=== PATIENT | female | born 1945 | race Caucasian/White ===

== ENCOUNTER 2023-11-28 07:25 | Emergency (ER) | payer MEDICARE, OTHER, SELFPAY ==
[2023-11-28 07:32] VITALS: BP 100/78
[2023-11-28 07:44] VITALS: BMI 25.9
[2023-11-28 08:02] VITALS: BP 126/58
--- NOTE | 2023-11-28 08:07 | ED.GENMED ---
History of Present Illness
General
Chief Complaint: Weakness
Source: patient and spouse
Exam Limitations: none
Time Seen by Provider: 11/28/23 08:07
Nursing documentation reviewed up to this point in time: agreed with
Travel History
Have you had any contact with someone who has COVID-19?: No
Do you have any symptoms of coronavirus? Fever > 100 degrees, chills, cough, shortness of breath, sore throat, loss of taste or smell, muscle aches, or headache?: No
History of Present Illness
History of Present Illness:
78-year-old female presents emergency department complaining of cough, weakness and diarrhea for the past 9 days. She had diarrhea 2 days ago, took Imodium and it stopped. She saw urgent care 2 days ago he suspected it was a virus versus a sinus
infection. She had a COVID swab 2 days ago that was negative. She denies any chest pain or shortness of breath.
Past History
Past History
ED Past Medical History: Cancer (colon, s/p resection 2006, in remission), HTN, Hypercholesterolemia, Hypothyroidism and Other (Sjogren syndrome)
ED Past Surgical History: Bowel resection (for Colon CA), Gynecological and Other (colon resection 2006, tubal ligation)
Social History
Tobacco: Non-smoker
Alcohol: Occasional
Drug: None
Personal:
Living: with family
Review of Systems
Review of Systems
All Other Systems: Not applicable
Constitutional: Denies fever or chills
EENT: Reports no symptoms
Respiratory: Reports cough
Cardiac: Reports no symptoms; Denies chest pain
ABD/GI: Reports diarrhea
: Reports no symptoms
Musculoskeletal: Reports no symptoms
Skin: Reports no symptoms
Neurological: Reports weakness
Hematologic/Lymphatic: Reports no symptoms
Psychiatric: Reports no symptoms
Phy Exam
Physical Exam
Physical Exam:
Physical Exam
General: no apparent distress, not acutely ill
Neck: supple. no meningeal signs. normal posterior pharynx
Heart: s1/s2 regular rate and rhythm, no murmur. equal radial
pulses.
HEENT: Pupils equal round reactive to light, EOMI
Lungs: no acute respiratory distress. clear bilaterally, cough
Abdomen: normal bowel sounds. not tender. no CVAT
Neuro: alert and oriented. no focal neurological deficits cranial nerves II through XII intact
Skin: no rash
Psychiatric: well kept. interactive and cooperative
Extremities: no edema. no calf tenderness. negative homans. good distal pulses
Course
Orders/Labs/Results
Orders:
Orders
11/28/23 07:50
Electrocardiogram (*1) Urgent
Reason for Study: Fatigue / Weakness
EKG- Treatment ONCE
11/28/23 08:00
CMP [Comprehensive Metabolic Panel] Urgent
Complete Blood Count/No Diff Urgent
DDimer [D-Dimer] Urgent
Troponin I Urgent
11/28/23 08:13
COVID-19 Antigen Urgent
Source: Nasal Swab
Influenza A+B Rapid Molecular Urgent
KIERAN Source: Nasal Swab
Specimen Description:
11/28/23 08:23
CR Chest - 2 Views Urgent
Comment:
Reason For Exam: cough
11/28/23 10:27
Urinalysis Reflex To Culture Urgent
Date Specimen was Collected: 11/28/23
Time Specimen was Collected: 10:18
Urine Microscopic Reflex Cult Urgent
Urine Culture Urgent
KIERAN Source: U
Specimen Description:
Date Specimen was Collected: 11/28/23
Time Specimen was Collected: 10:18
Abnormal Lab Results
11/28/23 11/28/23
08:00 10:27
RBC 3.45 L 10^6/uL
(4.20-5.40)
Hgb 11.6 L g/dL
(12.0-16.0)
Hct 33.5 L %
(37.0-47.0)
MCH 33.6 H pg
(27.0-31.0)
MPV 10.6 H fL
(7.4-10.4)
Glucose 105 H mg/dl
(70-99)
Ur Occult Blood Reflex 2+ A
(Negative)
Leukocyte Esterase Rfl 2+ A
(Negative)
Urine RBC 11-15 A /HPF
(0-2)
Urine WBC (Reflex) 16-20 A /HPF
(0-5)
11/28/23 08:00
11/28/23 08:00
Vital Signs
Initial and Last Documented VS:
Initial Vital Signs
Temp Pulse Resp BP Pulse Ox
99.8 F 115 16 100/78 99
11/28/23 07:32 11/28/23 07:32 11/28/23 07:32 11/28/23 07:32 11/28/23 07:32
Last Documented Vital Signs
Temp Pulse Resp BP Pulse Ox
99.8 F 88 21 119/63 92
11/28/23 07:32 11/28/23 11:15 11/28/23 11:15 11/28/23 11:00 11/28/23 11:00
MDM/Problems Addressed
Differential Diagnosis Includes:
UTI, COVID, pneumonia, influenza
MDM/Problems Addressed:
78-year-old female with viral URI, UTI.
Chronic conditions affecting care: HTN
Acute Exacerbation and/or Progression of Chronic Illness: HTN
*Radiology
Radiology exam reviewed: preliminary read by ED provider (Chest x-ray no acute findings)
*Pulse Oximetry
Patient hypoxic: no
*EKG
Interpreted by ED Provider?: Yes
EKG Intrepretation Date: 11/28/23
EKG Intrepretation Time: 08:08
Interpretation: abnormal
Comparison EKG: changes noted
Heart Rate: 95
Rate: normal
Rhythm: sinus
[place]: normal axis
Interval: first degree heart block
QRS Pattern: normal QRS
Ischemia: no ischemia
*Talent Acquisition Project Manager Interpretation
Rate: Talent Acquisition Project Manager- N/A
*Critical Care Note
Total Time (30-74mins, 75-104mins- exclusive of procedures): Not Applicable
Patient Management
Social determinants of health affecting care: Living situation and Strong social support
Escalation/DeEscalation of care consider admission/obs:
Admit not indicated
ED Attending Note
-
Portions of this chart may have been created with voice recognition software.� Occasional wrong word or��sound alike� substitutions may have occurred due to the inherent limitations of voice recognition software.
Discharge Plan
Departure
Patient Disposition: Home (Routine Discharge)
Date of Disposition: 11/28/23
Time of Disposition: 11:40
Patient with high blood pressure during this ER visit?: No
Condition: Good
Discharge Problem:
Urinary tract infection, Viral URI with cough
Instructions: Urinary tract infections in adults, Generalized Weakness (DC), Upper Respiratory Infection - Adult
Prescriptions:
New
cephalexin 500 mg capsule
500 mg PO BID 7 Days Qty: 14 0RF
No Action
losartan [Cozaar] 100 MG tablet
50 mg PO BID
atorvastatin 10 mg tablet
10 mg PO QPM
cevimeline 30 mg capsule
30 mg PO BID
cholecalciferol (vitamin D3) [Vitamin D3] 25 mcg (1,000 unit) Tablet
25 mcg PO QPM
biotin
1 tab PO QPM
acetaminophen 325 mg Tablet
650 mg PO Q4HPRN PRN (Reason: Mild Pain / Temp > 101) Qty: 0 0RF
promethazine-codeine 6.25-10 mg/5 mL Syrup
5 ml PO Q4HPRN PRN (Reason: Cough) Qty: 118 0RF
Mucinex
1,200 mg PO PRN PRN (Reason: congestion)
Sudafed
1 tab PO PRN PRN (Reason: congestion)
Eliquis 5 mg tablet
5 mg PO BID
Rx Instructions:
take 10 mg twice daily x 1 week then 5 mg twice daily thereafter
Referrals:
Albino Esteves MD [Family Provider] -
Interventions
Interventions:
*Risk Screen - Suicide Last Done: 11/28/23 07:45
*General Assessment Last Done: 11/28/23 07:44
*Neglect/Abuse Screening Last Done: 11/28/23 07:45
ED- Fall Risk Assessment Last Done: 11/28/23 07:45
*ED COVID-19 Vaccine History Last Done: 11/28/23 07:32
*Nursing Disposition Last Done: 11/28/23 12:11
ED- Cardiac Assessment Last Done: 11/28/23 07:48
ED- Neurological Assessment Last Done: 11/28/23 07:45
ED- Pulmonary Assessment Last Done: 11/28/23 07:48
Discharge Date and Time
Discharge Date/Time: 11/28/23 12:11
--- NOTE | 2023-11-28 08:12 | EDRN ---
D dimer drawn as pt was due for this as an out pt today for DR Hunter
[2023-11-28 08:13] LABS: Hematocrit 33.5 % (37.0-47.0); Hemoglobin 11.6 g/dL (12.0-16.0); Mean Corp Hgb Conc. 34.6 g/dL (33.0-37.0); Mean Corpuscular Hgb 33.6 pg (27.0-31.0); Mean Corpuscular Volume 97.1 fL (81.0-99.0); Mean Platelet Volume 10.6 fL (7.4-10.4); Platelet Count 147 10^3/uL (130-400); Red Blood Cell Count 3.45 10^6/uL (4.20-5.40); Red Cell Dist. Width 12.2 % (11.5-14.5); White Blood Cell Count 6.9 10^3/uL (4.8-10.8)
[2023-11-28 08:30] LABS: Troponin I < 0.012 ng/ml
[2023-11-28 08:31] LABS: ALT (SGPT) 17 U/L (0-35); AST (SGOT) 25 U/L (14-36); Albumin 3.8 g/dl (3.5-5.0); Alkaline Phosphatase 46 U/L (38-126); Blood Urea Nitrogen 16 mg/dl (7-17); Calcium 9.1 mg/dl (8.4-10.2); Carbon Dioxide 24 mmol/L (22-30); Chloride 105 mmol/L (98-107); Estimated Creatinine Clearance 42 ml/min; Glucose 105 mg/dl (70-99); Potassium 3.8 mmol/L (3.5-5.1); Sodium 137 mmol/L (135-145); Total Bilirubin 0.9 mg/dl (0.2-1.3); Total Protein 6.3 g/dl (6.3-8.2); eGFR > 60.00
[2023-11-28 08:47] LABS: COVID-19 Antigen Negative (Negative)
[2023-11-28 08:57] LABS: D-Dimer 0.37 ug/mlFEU (0.00-0.50)
[2023-11-28 09:00] VITALS: BP 129/56
[2023-11-28 10:00] VITALS: BP 127/53
[2023-11-28 10:37] LABS: Urine Albumin Trace (Neg - Trace); Urine Bilirubin Negative (Negative); Urine Character Clear (Clear); Urine Color Yellow; Urine Glucose Negative (Negative); Urine Ketone Negative (Negative); Urine Leukocyte 2+ (Negative); Urine Nitrite Negative (Negative); Urine Occult Blood 2+ (Negative); Urine Urobilinogen Negative (Neg - 1+)
[2023-11-28 10:51] LABS: Urine White Cell 16-20 /HPF (0-5)
[2023-11-28 11:00] VITALS: BP 119/63
== END 2023-11-28 12:11 | disposition home or self-care (01) ==
LOC: EMR 07:25
PROVIDERS: Emergency Medicine; EMERGENCY PHYSICIAN Emergency Medicine; FAMILY PHYSICIAN Internal Medicine
DX: N39.0 Urinary tract infection, site not specified (principal); J06.9 Acute upper respiratory infection, unspecified; I10 Essential (primary) hypertension; E78.00 Pure hypercholesterolemia, unspecified; E03.9 Hypothyroidism, unspecified; M35.00 Sjogren syndrome, unspecified; Z85.038 Personal history of other malignant neoplasm of large intestine
CPT/HCPCS: 99283; 71046; 80053; 81003; 81015; 84484; 85027; 85379; 87086; 87502; 87811; 93005

== ENCOUNTER → 2023-12-28 09:24 | Outpatient (REF) | payer MEDICARE, OTHER, SELFPAY ==
[2023-12-30 01:55] LABS: Beta-2-Glycoprotein I Ab. IgA <10 SAU (<=20)
[2023-12-30 02:15] LABS: Cardiolipin IgA Antibody <10 APL (<=11); Cardiolipin IgM Antibody <10 MPL (<=12); Cardiolipin Igg Antibody <10 GPL (<=14)
[2023-12-30 19:28] LABS: Hepatitis B Surface Antigen Negative (Negative)
[2023-12-30 19:42] LABS: Hepatitis B Core Ab, Total Negative (Negative); Hepatitis C Antibody Negative (Negative)
== END ==
LOC: REG 09:24
PROVIDERS: ATTENDING PHYSICIAN Internal Medicine Rheumatology; FAMILY PHYSICIAN Internal Medicine
DX: D89.2 Hypergammaglobulinemia, unspecified (principal); E03.9 Hypothyroidism, unspecified; E55.9 Vitamin D deficiency, unspecified; I26.99 Other pulmonary embolism without acute cor pulmonale; M16.0 Bilateral primary osteoarthritis of hip; M35.00 Sjogren syndrome, unspecified; M48.061 Spinal stenosis, lumbar region without neurogenic claudication; M51.37 Other intervertebral disc degeneration, lumbosacral region; Z11.59 Encounter for screening for other viral diseases; Z13.820 Encounter for screening for osteoporosis; Z79.899 Other long term (current) drug therapy
CPT/HCPCS: 36415; 85520; 85613; 86146; 86147; 86704; 86803; 87340

== ENCOUNTER 2024-01-27 10:24 | Emergency (ER) | payer MEDICARE, OTHER, SELFPAY ==
[2024-01-27 10:28] VITALS: BP 122/65
--- NOTE | 2024-01-27 10:56 | ED.GENMED ---
History of Present Illness
<Venice Stephens REAL ESTATE SALES MANAGER - Last Filed: 01/27/24 16:59>
General
Chief Complaint: Cough
Source: patient
Exam Limitations: none
Time Seen by Provider: 01/27/24 10:55
Nursing documentation reviewed up to this point in time: agreed with
Travel History
Have you had any contact with someone who has COVID-19?: No
Do you have any symptoms of coronavirus? Fever > 100 degrees, chills, cough, shortness of breath, sore throat, loss of taste or smell, muscle aches, or headache?: No
History of Present Illness
History of Present Illness:
78-year-old female with history of HTN, HLD, GI bleed, Sjogren's, colon resection due to colon cancer, lower extremity neuropathy postchemotherapy, hypothyroid, remote history of PE, presents stating for past week her cough 'returned,' worsening
nasal stuffiness, productive cough whitish yellow sputum, paroxysms of cough, kept her up 'a couple of nights' Robitussin giving her some relief. This a.m. noted her sitting forward, elbows on knees, breathing fast after a coughing spell,
got worried and brought her here. They both admit 'she seems much better now.' She states she was coughing up 'some heavy stuff.' States temp 100.4 2 hours ago and took Tylenol.
Denies CP, abdominal pain, n/v/d.
Pt admitted here 11/29-12/02 with viral bronchitis, hypoxia (negative PE study during that stay, echocardiogram showed no change except for mild MR became moderate MR).
Recommended she keep her appointment with cardiology Dr. oDe
Make an appointment for pulmonary function testing
Get her thyroid function test in 6 weeks as her TSH was mildly elevated
Finished regimen of doxycycline and steroids and symptoms much improved.
Past History
<Venice Stephens REAL ESTATE SALES MANAGER - Last Filed: 01/27/24 16:59>
Past History
ED Past Medical History: Cancer (colon, s/p resection 2006, in remission), HTN, Hypercholesterolemia, Hypothyroidism and Other (Sjogren syndrome)
ED Past Surgical History: Bowel resection (for Colon CA), Gynecological and Other (colon resection 2006, tubal ligation)
Social History
Tobacco: Non-smoker
Alcohol: Occasional
Drug: None
Personal:
Living: with family
Review of Systems
<Venice Stephens, REAL ESTATE SALES MANAGER - Last Filed: 01/27/24 16:59>
Review of Systems
Allergies reviewed?: Yes
All Other Systems: ROS reviewed and negative except as documented in HPI and ROS
Constitutional: Denies fever or chills
Respiratory: Reports cough
Cardiac: Denies chest pain
ABD/GI: Denies abdominal pain, nausea, vomiting or diarrhea
Phy Exam
<Venice Stephens, REAL ESTATE SALES MANAGER - Last Filed: 01/27/24 16:59>
Physical Exam
Physical Exam:
GENERAL: No acute distress. A&Ox3.
CONSTITUTIONAL: Afebrile.
EYES: clear, conjunctivae normal
ENMT: moist mucus membranes, Pharynx nl, no frontal or maxillary sinus tenderness to percussion
RESPIRATORY: Regular respirations, nonlabored, lungs clear.
CARDIOVASCULAR: Regular rate and rhythm, no murmurs, no rubs.
GI: Soft, nontender, normal BS
MUSCULOSKELETAL: Moves with ease. Well perfused. No edema
SKIN: Warm, dry, pink
PSYCH: Normal mood and affect. Well kept, interactive and appropriate
NEUROLOGIC: Awake, alert and oriented. No focal neurological deficits
Course
<Venice Stephens, REAL ESTATE SALES MANAGER - Last Filed: 01/27/24 16:59>
Orders/Labs/Results
Orders:
Orders
01/27/24 11:41
COVID-19 Antigen Urgent
Source: Nasal Swab
Complete Blood Count/With Diff Urgent
Comprehensive Metabolic Panel Urgent
TSH Reflex To Free T4 Urgent
Influenza A+B Rapid Molecular Urgent
KIERAN Source: Nasal Swab
Specimen Description:
01/27/24 11:42
D-Dimer Urgent
01/27/24 13:05
CT Chest Pe Study Urgent
Comment:
Reason For Exam: SOB 2 weeks off Eliquis, elevated dimer
Abnormal Lab Results
01/27/24 01/27/24
11:41 11:42
RBC 3.44 L 10^6/uL
(4.20-5.40)
Hgb 11.3 L g/dL
(12.0-16.0)
Hct 34.0 L %
(37.0-47.0)
MCH 32.8 H pg
(27.0-31.0)
Absolute Lymphs (auto) 0.8 L 10^3/uL
(1.2-3.4)
Lymphocytes % 16.5 L %
(20.5-51.1)
Monocytes % 10.1 H %
(1.7-9.3)
D-Dimer 1.01 H ug/mlFEU
(0.00-0.50)
Sodium 134 L mmol/L
(135-145)
Glucose 106 H mg/dl
(70-99)
Total Protein 6.0 L g/dl
(6.3-8.2)
01/27/24 11:41
01/27/24 11:41
Vital Signs
Initial and Last Documented VS:
Initial Vital Signs
Temp Pulse BP Pulse Ox
99.6 F 105 122/65 99
01/27/24 10:28 01/27/24 10:28 01/27/24 10:28 01/27/24 10:28
Last Documented Vital Signs
Temp Pulse Resp BP Pulse Ox
99.6 F 81 18 133/67 95
01/27/24 10:28 01/27/24 13:16 01/27/24 13:16 01/27/24 13:16 01/27/24 13:16
Computer Discovery Teacher consulted with Physician
Computer Discovery Teacher consulted with physician?: Yes
Name of Physician Consulted: Merlene
<Aline Blunt MD - Last Filed: 01/27/24 14:19>
Orders/Labs/Results
Orders:
Orders
01/27/24 11:41
COVID-19 Antigen Urgent
Source: Nasal Swab
Complete Blood Count/With Diff Urgent
Comprehensive Metabolic Panel Urgent
TSH Reflex To Free T4 Urgent
Influenza A+B Rapid Molecular Urgent
KIERAN Source: Nasal Swab
Specimen Description:
01/27/24 11:42
D-Dimer Urgent
01/27/24 13:05
CT Chest Pe Study Urgent
Comment:
Reason For Exam: SOB 2 weeks off Eliquis, elevated dimer
Abnormal Lab Results
01/27/24 01/27/24
11:41 11:42
RBC 3.44 L 10^6/uL
(4.20-5.40)
Hgb 11.3 L g/dL
(12.0-16.0)
Hct 34.0 L %
(37.0-47.0)
MCH 32.8 H pg
(27.0-31.0)
Absolute Lymphs (auto) 0.8 L 10^3/uL
(1.2-3.4)
Lymphocytes % 16.5 L %
(20.5-51.1)
Monocytes % 10.1 H %
(1.7-9.3)
D-Dimer 1.01 H ug/mlFEU
(0.00-0.50)
Sodium 134 L mmol/L
(135-145)
Glucose 106 H mg/dl
(70-99)
Total Protein 6.0 L g/dl
(6.3-8.2)
01/27/24 11:41
01/27/24 11:41
Vital Signs
Initial and Last Documented VS:
Initial Vital Signs
Temp Pulse BP Pulse Ox
99.6 F 105 122/65 99
01/27/24 10:28 01/27/24 10:28 01/27/24 10:28 01/27/24 10:28
Last Documented Vital Signs
Temp Pulse Resp BP Pulse Ox
99.6 F 81 18 133/67 95
01/27/24 10:28 01/27/24 13:16 01/27/24 13:16 01/27/24 13:16 01/27/24 13:16
<Venice Stephens REAL ESTATE SALES MANAGER - Last Filed: 01/27/24 16:59>
MDM/Problems Addressed
Differential Diagnosis Includes:
Mucus plug, PE
MDM/Problems Addressed:
78-year-old female with history of HTN, HLD, GI bleed, Sjogren's, colon resection due to colon cancer, lower extremity neuropathy postchemotherapy, hypothyroid, remote history of PE, presents stating for past week her cough 'returned,' worsening
nasal stuffiness, productive cough whitish yellow sputum, paroxysms of cough, kept her up 'a couple of nights' Robitussin giving her some relief. This a.m. noted her sitting forward, elbows on knees, breathing fast after a coughing spell,
got worried and brought her here. They both admit 'she seems much better now.' She states she was coughing up 'some heavy stuff.' States temp 100.4 2 hours ago and took Tylenol.
Denies CP, abdominal pain, n/v/d.
Pt admitted here 11/29-12/02 with viral bronchitis, hypoxia (negative PE study during that stay, echocardiogram showed no change except for mild MR became moderate MR).
Recommended she keep her appointment with cardiology Dr. Doe
Make an appointment for pulmonary function testing
Get her thyroid function test in 6 weeks as her TSH was mildly elevated
Finished regimen of doxycycline and steroids and symptoms much improved.
Afebrile, NAD, pleasant feeling 'much better.'
Pt saw Pulmonology Dr. Jiménez 2 weeks ago for f/u after PE w Covid 08/2023 and he stopped her Eliquis at that time
It seems pt may have coughed up a mucus plug during the worrisome event of coughing then fatigue and SOB witnessed
Pt had 2 CXR w NAD in past month, Chest CT for PE neg on 11/29/23, lungs CTA, no hypoxemia, hold off on CXR for now
With h/o PE and taken off Eliquis recently, will check Dimer
Case discussed with Dr. Blunt who agrees with plan
1:54 PM
Influenza and Covid negative
Dimer 1.01
CBC, CMP unremarkable
CT PE study radiology report read: IMPRESSION:
No evidence of central pulmonary embolism.
Parenchymal findings again seen correlating with the patient's known history of Sjogren's syndrome.
Pt continues to feel better.
D dimer elevation most likely from Sjogren's
Prescription for guaifenesin and codeine sent to patient's pharmacy since this has helped her cough in the past
Upon discharge, patient ambulated out with normal gait.
<Venice Stephens, REAL ESTATE SALES MANAGER - Last Filed: 01/27/24 16:59>
*Critical Care Note
Total Time (30-74mins, 75-104mins- exclusive of procedures): Not Applicable
ED Attending Note
<Venice Stephens REAL ESTATE SALES MANAGER - Last Filed: 01/27/24 16:59>
-
Portions of this chart may have been created with voice recognition software.� Occasional wrong word or��sound alike� substitutions may have occurred due to the inherent limitations of voice recognition software.
<Aline Blunt MD - Last Filed: 01/27/24 14:19>
ED Attending Note
Patient seen and examined by attending physician: Yes
I performed the substantive portion of visit, reviewed & personally made and approve the management plan that is documented in note by myself or RENZO.: Yes
ED Attending Note:
78-year-old female with extensive prior medical history, recently discharged in the hospital in late November presents with cough and fatigue for at least the last few days if not week. She denies fever, vomiting, chest pain, leg swelling,
hemoptysis, sore throat, rhinorrhea. Here in the emergency department patient feels better since arrival, no dyspnea, no chest pain. Patient is awake alert extremely well-appearing, nontoxic, occasional nonproductive cough noted, speaks in full
sentences easily. Heart regular rate and rhythm. Lungs CTA with the exception of occasional slight wheeze noted at left base, no retractions. Workup reviewed here, no acute emergent etiology for symptoms noted, no specific infectious etiology
noted, no PE. Discussed with patient importance of follow-up and reasons return to the ER. I also recommend that she use inhaler that she has at home for symptom relief. Requesting cough medication which I have prescribed for her.
Discharge Plan
Departure
Patient Disposition: Home (Routine Discharge)
Date of Disposition: 01/27/24
Time of Disposition: 14:18
Patient with high blood pressure during this ER visit?: No
Condition: Good
Discharge Problem:
URI (upper respiratory infection), Cough
Instructions: Viral Upper Respiratory Infection, Adult (DC), Cough, Adult (DC)
Prescriptions:
New
codeine-guaifenesin 10-100 mg/5 mL liquid
5 ml PO Q6H Qty: 120 0RF
No Action
losartan [Cozaar] 100 MG tablet
50 mg PO BID
atorvastatin 10 mg tablet
10 mg PO QPM
cevimeline 30 mg capsule
30 mg PO BID
cholecalciferol (vitamin D3) [Vitamin D3] 25 mcg (1,000 unit) Tablet
25 mcg PO QPM
biotin
1 tab PO QPM
Eliquis 5 mg tablet
5 mg PO BID
guaifenesin 100 mg/5 mL Liquid
200 mg PO Q4H PRN (Reason: cough)
levothyroxine 75 mcg Tablet
75 mcg PO DAILY AT 0700
doxycycline hyclate 100 mg Capsule
100 mg PO Q12 Qty: 5 0RF
metoprolol succinate 25 mg Tablet Extended Release 24 Hr
25 mg PO DAILY Qty: 30 0RF
prednisone 10 mg Tablet
See Rx Instructions .ROUTE .COMPLEX Qty: 22 0RF
Rx Instructions:
Take By Mouth:
40 mg daily x2 days, 30 mg daily x2 days,
20 mg daily x2 days, 10 mg daily x2 days.
famotidine [Pepcid] 40 mg tablet
40 mg PO DAILY Qty: 10 0RF
levalbuterol tartrate [Xopenex HFA] 45 mcg/actuation HFA aerosol inhaler
2 inh inhalation Q6H PRN (Reason: shortness of breath or wheezing) Qty: 15 0RF
Referrals:
Albino Esteves MD [Family Provider] - As needed
Activity Restrictions/Additional Instructions:
As we discussed, a prescription was sent to your pharmacy for guaifenesin with codeine for your cough.
See your doctor in 5 to 7 days and improved by then.
Your TSH is normal.
Interventions
Interventions:
*Risk Screen - Suicide Last Done: 01/27/24 11:50
*General Assessment Last Done: 01/27/24 11:50
*Neglect/Abuse Screening Last Done: 01/27/24 11:50
ED- Fall Risk Assessment Last Done: 01/27/24 15:06
*ED COVID-19 Vaccine History Last Done: 01/27/24 10:32
*Nursing Disposition Last Done: 01/27/24 15:06
ED- Pulmonary Assessment Last Done: 01/27/24 11:50
Discharge Date and Time
Discharge Date/Time: 01/27/24 15:07
[2024-01-27 12:00] LABS: % Basophils 0.2 % (0-2); % Eosinophils 0.6 % (0-6); % Immature Granulocytes 0.2 % (0-0.5); % Lymphocytes 16.5 % (20.5-51.1); % Monocytes 10.1 % (1.7-9.3); % Neutrophils 72.4 % (42.2-75.2); Absolute Lymphocytes 0.8 10^3/uL (1.2-3.4); Absolute Monocytes 0.5 10^3/uL (0.1-0.6); Absolute Neutrophils 3.5 10^3/uL (1.4-6.5); Hemoglobin 11.3 g/dL (12.0-16.0); Mean Corp Hgb Conc. 33.2 g/dL (33.0-37.0); Mean Corpuscular Hgb 32.8 pg (27.0-31.0); Mean Corpuscular Volume 98.8 fL (81.0-99.0); Mean Platelet Volume 10.4 fL (7.4-10.4); Nucleated Red Blood Cells % 0 %; Platelet Count 145 10^3/uL (130-400); Red Blood Cell Count 3.44 10^6/uL (4.20-5.40); Red Cell Dist. Width 13.4 % (11.5-14.5); White Blood Cell Count 4.9 10^3/uL (4.8-10.8)
[2024-01-27 12:02] LABS: COVID-19 Antigen Negative (Negative)
[2024-01-27 12:14] LABS: D-Dimer 1.01 ug/mlFEU (0.00-0.50)
[2024-01-27 12:16] LABS: ALT (SGPT) 15 U/L (0-35); AST (SGOT) 29 U/L (14-36); Albumin 3.7 g/dl (3.5-5.0); Alkaline Phosphatase 47 U/L (38-126); Blood Urea Nitrogen 17 mg/dl (7-17); Carbon Dioxide 28 mmol/L (22-30); Chloride 104 mmol/L (98-107); Glucose 106 mg/dl (70-99); Potassium 4.1 mmol/L (3.5-5.1); Sodium 134 mmol/L (135-145); eGFR > 60.00
[2024-01-27 12:57] LABS: TSH Reflex To Free T4 3.66 uIU/ml (0.47-4.68)
[2024-01-27 13:16] VITALS: BP 133/67
== END 2024-01-27 15:07 | disposition home or self-care (01) ==
LOC: EMR 10:24
PROVIDERS: Registered Nurse; EMERGENCY PHYSICIAN Emergency Medicine; FAMILY PHYSICIAN Internal Medicine
DX: J06.9 Acute upper respiratory infection, unspecified (principal); R05.9 Cough, unspecified; Z11.52 Encounter for screening for COVID-19; I10 Essential (primary) hypertension; E78.00 Pure hypercholesterolemia, unspecified; M35.00 Sjogren syndrome, unspecified; E03.9 Hypothyroidism, unspecified
CPT/HCPCS: 99285; 71275; 80053; 84443; 85025; 85379; 87502; 87811; Q9967

== ENCOUNTER 2024-01-31 19:15 | Inpatient (IN) | payer MEDICARE, OTHER, SELFPAY ==
[2024-01-31 13:35] VITALS: BP 112/63
[2024-01-31 14:05] LABS: % Basophils 0.2 % (0-2); % Eosinophils 0.1 % (0-6); % Immature Granulocytes 0.4 % (0-0.5); % Lymphocytes 15.2 % (20.5-51.1); % Monocytes 10.2 % (1.7-9.3); % Neutrophils 73.9 % (42.2-75.2); Absolute Lymphocytes 1.5 10^3/uL (1.2-3.4); Absolute Neutrophils 7.3 10^3/uL (1.4-6.5); Hematocrit 32.6 % (37.0-47.0); Hemoglobin 11.2 g/dL (12.0-16.0); Mean Corp Hgb Conc. 34.4 g/dL (33.0-37.0); Mean Corpuscular Hgb 32.7 pg (27.0-31.0); Mean Corpuscular Volume 95.3 fL (81.0-99.0); Mean Platelet Volume 10.6 fL (7.4-10.4); Nucleated Red Blood Cells % 0 %; Platelet Count 139 10^3/uL (130-400); Red Blood Cell Count 3.42 10^6/uL (4.20-5.40); Red Cell Dist. Width 13.5 % (11.5-14.5); White Blood Cell Count 9.9 10^3/uL (4.8-10.8)
[2024-01-31 14:32] LABS: ALT (SGPT) 16 U/L (0-35); AST (SGOT) 28 U/L (14-36); Albumin 4.1 g/dl (3.5-5.0); Alkaline Phosphatase 45 U/L (38-126); Blood Urea Nitrogen 18 mg/dl (7-17); Calcium 9.5 mg/dl (8.4-10.2); Carbon Dioxide 25 mmol/L (22-30); Chloride 97 mmol/L (98-107); Glucose 124 mg/dl (70-99); Potassium 4.2 mmol/L (3.5-5.1); Sodium 134 mmol/L (135-145); Total Bilirubin 2.1 mg/dl (0.2-1.3); Total Protein 6.6 g/dl (6.3-8.2); eGFR 57.66
[2024-01-31 15:06] VITALS: BMI 25.4
[2024-01-31 15:07] VITALS: BP 130/86
[2024-01-31 15:07] LABS: Lactic Acid 2.4 mmol/L (0.7-2.0)
--- NOTE | 2024-01-31 16:01 | ED.GENMED ---
History of Present Illness
General
Chief Complaint: Cold/Flu/URI Symptoms
Source: patient and family
Exam Limitations: none
Time Seen by Provider: 01/31/24 14:29
Travel History
Have you had any contact with someone who has COVID-19?: No
Do you have any symptoms of coronavirus? Fever > 100 degrees, chills, cough, shortness of breath, sore throat, loss of taste or smell, muscle aches, or headache?: Yes
Symptoms:: see above
History of Present Illness
History of Present Illness:
78-year-old female with ongoing cough congestion shortness of breath. This been an ongoing issue but more progressive the last 3 to 4 days. Seen in the ER 4 days [address] with negative CT.
Past History
Past History
ED Past Medical History: Cancer (colon, s/p resection 2006, in remission), HTN, Hypercholesterolemia, Hypothyroidism and Other (Sjogren syndrome)
ED Past Surgical History: Bowel resection (for Colon CA), Gynecological and Other (colon resection 2006, tubal ligation)
Social History
Tobacco: Non-smoker
Alcohol: Occasional
Drug: None
Personal:
Living: with family
Review of Systems
Review of Systems
All Other Systems: Not applicable
Constitutional: Reports fever
Respiratory: Reports cough; Denies hemoptysis
Cardiac: Denies chest pain
Phy Exam
Physical Exam
Physical Exam:
GENERAL: Alert and oriented in no apparent distress
EYE: Orbits normal.
NECK: Supple
CARDIAC: Regular rate and rhythm without any obvious murmurs.
LUNGS: No respiratory distress but diffuse expiratory wheezing and rhonchi. Recurrent cough
ABDOMEN: Soft, without focal tenderness or distention
NEUROLOGICAL: Alert and oriented , grossly non-focal
SKIN: Warm and dry, no rash or lesion, no discoloration, skin intact.
MUSCULOSKELETAL: No edema,no deformity.Good color
PSYCH: Normal and appropriate interaction.
Course
Orders/Labs/Results
Orders:
Orders
01/31/24 13:43
Electrocardiogram (*1) Urgent
Reason for Study: Other
Other Reason for Exam: Possible Sepsis
Cardiac Monitoring- Treatment ONCE
EKG- Treatment ONCE
IV Insert/Care/Rem.- Treatment PRN
O2 Therapy [RESP] Urgent
Titrate/Wean O2 to maintain O2 sat greater than (%): 93
Special Instructions: TO MAINTAIN CONTINUOUS O2 SATS > OR = 93%
Pulse Ox/cont/shift [RESP] Urgent
Quantity: 1
Special Instructions: CONTINUOUS
01/31/24 13:55
Complete Blood Count/With Diff Urgent
Comprehensive Metabolic Panel Urgent
Lactic Acid Q4H
Comment: ON ICE, CANCEL 2ND ORDER IF FIRST LACTIC ACID LEVEL <2
Blood Culture Q30M
KIERAN Source: Blood/Venous
Specimen Description:
Comment: FROM 2 SEPARATE SITES
01/31/24 15:45
Dexamethasone Sod Phosphate [Decadron] 6 mg IV NOW STA
Ipratropium/Albuterol Sulfate [Duoneb] 3 ml INH R NOW STA
01/31/24 15:46
CXR2 [CR Chest - 2 Views ] Urgent
Comment:
Reason For Exam: Persistent cough/short of breath
01/31/24 16:15
COVID-19 Antigen Urgent
Source: Nasal Swab
01/31/24 16:16
Blood Culture Q30M
KIERAN Source: Blood/Venous
Specimen Description:
Comment: FROM 2 SEPARATE SITES
Influenza A+B Rapid Molecular Urgent
KIERAN Source: Nasal Swab
Specimen Description:
01/31/24 16:18
Dexamethasone Sod Phosphate [Decadron] 4 mg .ROUTE .STK-MED ONE
01/31/24 17:45
Lactic Acid Q4H
Comment: ON ICE, CANCEL 2ND ORDER IF FIRST LACTIC ACID LEVEL <2
01/31/24 18:22
Admit/Transfer Patient As Directed
Co-Sign Provider:
Level of Care: Inpatient admission
Assign to:: Medical/Surgical
Physician / Group: aba
Diagnosis: bronchitis
Reason for Hospitalization: bronchitis
Expected length of stay greater than two midnights?: Yes
ELOS- Estimated Length of Stay in days: 3
I certify the patient meets the requirements for IP care: Yes
01/31/24 18:24
Code Status As Directed
Resuscitation Status: Full Code
01/31/24 18:36
Sputum Culture [Respiratory Culture/Gram Stain] Stat
KIERAN Source: Sputum
Specimen Description:
01/31/24 18:44
Procalcitonin Routine
PCT Algorithmm Indication: Respiratory
Abnormal Lab Results
01/31/24
13:55
RBC 3.42 L 10^6/uL
(4.20-5.40)
Hgb 11.2 L g/dL
(12.0-16.0)
Hct 32.6 L %
(37.0-47.0)
MCH 32.7 H pg
(27.0-31.0)
MPV 10.6 H fL
(7.4-10.4)
Absolute Neuts (auto) 7.3 H 10^3/uL
(1.4-6.5)
Absolute Monos (auto) 1.0 H 10^3/uL
(0.1-0.6)
Lymphocytes % 15.2 L %
(20.5-51.1)
Monocytes % 10.2 H %
(1.7-9.3)
Sodium 134 L mmol/L
(135-145)
Chloride 97 L mmol/L
(98-107)
BUN 18 H mg/dl
(7-17)
Glucose 124 H mg/dl
(70-99)
Lactic Acid 2.4 H mmol/L
(0.7-2.0)
Total Bilirubin 2.1 H mg/dl
(0.2-1.3)
01/31/24 13:55
01/31/24 13:55
Vital Signs
Initial and Last Documented VS:
Initial Vital Signs
Temp Pulse Resp BP Pulse Ox
99.7 F 108 22 112/63 95
01/31/24 13:35 01/31/24 13:35 01/31/24 13:35 01/31/24 13:35 01/31/24 13:35
Last Documented Vital Signs
Temp Pulse Resp BP Pulse Ox
99.7 F 94 20 130/86 96
01/31/24 13:35 01/31/24 16:30 01/31/24 16:30 01/31/24 15:07 01/31/24 15:26
*Radiology
Radiology exam reviewed: preliminary read by ED provider (Negative) and radiology read reviewed (Negative)
*Pulse Oximetry
Patient hypoxic: no
*Critical Care Note
Total Time (30-74mins, 75-104mins- exclusive of procedures): Not Applicable
Data Reviewed
Review of Other/Old Records Reveals: Labs, Records, Testing and Discharge Summary
Update Note
Update Note:
Patient is not hypoxic but has persistent wheezing and rhonchi. Will admit for further care
ED Attending Note
-
Portions of this chart may have been created with voice recognition software.� Occasional wrong word or��sound alike� substitutions may have occurred due to the inherent limitations of voice recognition software.
Discharge Plan
Departure
Patient Disposition: Admit
Date of Disposition: 01/31/24
Time of Disposition: 17:43
Presentation/result/management discussed w/ accepting MD/DO: Hospitalist
Discharge Problem:
Respiratory distress, Persistent asthmatic bronchitis
Prescriptions:
No Action
losartan [Cozaar] 100 MG tablet
50 mg PO BID
atorvastatin 10 mg tablet
10 mg PO QPM
cevimeline 30 mg capsule
30 mg PO BID
cholecalciferol (vitamin D3) [Vitamin D3] 25 mcg (1,000 unit) Tablet
25 mcg PO QPM
biotin
1 tab PO QPM
levothyroxine 75 mcg Tablet
75 mcg PO DAILY AT 0700
acetaminophen 500 mg Tablet
1,000 mg PO BID
albuterol sulfate 90 mcg/actuation HFA aerosol inhaler
2 puff INHALATION R Q4 PRN (Reason: sob/wheezing)
Referrals:
Albino Esteves MD [Family Provider] -
Interventions
Interventions:
*Risk Screen - Suicide Last Done: 01/31/24 13:35
*General Assessment Last Done: 01/31/24 13:35
*Neglect/Abuse Screening Last Done: 01/31/24 13:35
ED- Fall Risk Assessment Last Done: 01/31/24 15:26
*ED COVID-19 Vaccine History Last Done: 01/31/24 15:21
ED- Pulmonary Assessment Last Done: 01/31/24 15:26
Discharge Date and Time
Print Language: PRYDEINIG
[2024-01-31] MEDS: DECADRON 6 MG IV (16:17)
[2024-01-31] MEDS: DUONEB 3 ML INH (16:26)
[2024-01-31 17:01] LABS: COVID-19 Antigen Negative (Negative)
--- NOTE | 2024-01-31 18:04 | HPS.HSE ---
Family Physician
-
Family Physician: Yosvany Esteves
Chief Complaint
-
sob
cough
History of Present Illness
78-year-old with past medical history for colon cancer, hypertension, hyperlipidemia, hypothyroidism, bronchitis, COVID. Presented to us with chest congestion, runny nose prior to cough with green sputum. Short of breath which is worse with mild
activity since the weekend. Patient was evaluated in the ER on Saturday. She was discharged from ER on codeine guaifenesin. Patient stated she had a fever 100.4. Took Tylenol. Patient denies any headache, dizziness, syncopal episode. Patient
denies any chest pain. Patient denies any abdominal pain, nausea, vomiting, diarrhea. Patient denies dysuria materia.
COVID, flu negative. Chest x-ray negative for acute disease. Patient received nebulizer treatment and Decadron in ER. Admitting for further management
Medical History
Past Medical History
Past Medical History: Reports Other
Additional Past Medical History:
GERD
Hypertension
Right carotid artery occlusion and stenosis
Varicose veins
Hypothyroidism
History of colon cancer
Hyperlipidemia
PE
Past Surgical History: Reports Other
Additional Past Surgical History:
Colon resection
tubal ligation
Social History
Tobacco: Non-smoker
Alcohol: Occasional
Drug: None
Personal:
Living: With Family
Family History
Family History: Not pertinent
Allergies / Home Medications
Allergies reflects when Allergies were last updated in [facility].
Home Medications with original date entered in [facility]
Allergy/Medication List:
Allergies
Allergy/AdvReac Type Severity Reaction Status Date / Time
hydroxychloroquine Allergy Rash Verified 01/31/24 13:35
[From Plaquenil]
Home Medications
losartan 100 mg tablet (Cozaar) 50 mg PO BID Blood Pressure 06/18/08
atorvastatin 10 mg tablet 10 mg PO QPM High Cholesterol 08/27/23
biotin 1 tab PO QPM Supplement 08/27/23
cevimeline 30 mg capsule 30 mg PO BID xerostomia 08/27/23
cholecalciferol (vitamin D3) 25 mcg (1,000 unit) tablet (Vitamin D3) 25 mcg PO QPM Supplement 08/27/23
levothyroxine 75 mcg tablet 75 mcg PO DAILY AT 0700 Thyroid 11/29/23
acetaminophen 500 mg tablet 1,000 mg PO BID 01/31/24
albuterol sulfate 90 mcg/actuation aerosol inhaler 2 puff inhalation R Q4 PRN sob/wheezing 01/31/24
Review of Systems
-
Constitutional: Reports Fever
EENT: Reports No Symptoms
Respiratory: Reports Cough and Trouble Breathing
Cardiac: Reports No Symptoms
Abdomen/GI: Reports No Symptoms
: Reports No Symptoms
Musculoskeletal: Reports No Symptoms
Skin: Reports No Symptoms
Neurological: Reports No Symptoms
Endocrine: Reports No Symptoms
Hematologic/Lymphatic: Reports No Symptoms
Psych: Reports No Symptoms
Physical Exam
Vital Signs
Vital Signs
Temp Pulse Resp BP Pulse Ox
99.7 F 94 20 130/86 96
01/31/24 13:35 01/31/24 16:30 01/31/24 16:30 01/31/24 15:07 01/31/24 15:26
Physical Exam
General: Well Developed, Well Nourished and No Apparent Distress
HEENT: NormoCephalic, Moist mucous membranes and Atraumatic
Respiratory: Rhonchi
Cardiac: S1/S2 and Regular Rhythm; No Murmur or Rub
GI: Soft, Non Tender, Non Distended and Normal Bowel Sounds; No Organomegaly
Rectal: Deferred by Provider
Musculoskeletal: No Clubbing, No Cyanosis and No Edema
Skin: No Rash
Neuro: AO x 3 and Nonfocal/grossly intact
Laboratory Results
-
01/31/24 13:55
01/31/24 13:55
Laboratory Results
Lactic Acid 2.4 mmol/L (0.7-2.0) H 01/31/24 13:55
Total Bilirubin 2.1 mg/dl (0.2-1.3) H 01/31/24 13:55
AST 28 U/L (14-36) 01/31/24 13:55
ALT 16 U/L (0-35) 01/31/24 13:55
Alkaline Phosphatase 45 U/L (38-126) 01/31/24 13:55
Data Reviewed
-
Diagnostic Radiology: Report Reviewed by me
Lab Data: Labs Reviewed by me
Impression/Plan
-
# Persistent asthmatic bronchitis
-Lactic acid 2.4
-COVID-negative
-Chest x-ray with no acute cardiopulmonary process
-Blood culture sent from ER
-Influenza negative
-Dexamethasone 4 Mg IV every 8 hours
-Nebulizer as needed for shortness of Breath and wheezing
-fluids continued for hydration
#Sjogren's Syndrome
-Continue cevimeline
#Essential Hypertension
-Continue losartan
#Dyslipidemia
-Continue atorvastatin
#Hypothyroidism
-Continue levothyroxine
#Pulmonary Embolism
#Left carotid artery stenosis
#Hx Colon Cancer s/p Surgery and Chemo
#Code Status: Full Code
--- NOTE | 2024-01-31 18:43 | W.PN.UPDATE ---
Update Note
Progress Note Update
This is an addendum to the H&P written by recreation center director Marisol Sanchez on 01/31/2024.
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 78-year-old female past medical history of recent viral bronchitis in November, COVID infection September, Sjogren's syndrome, hypertension, hypercholesteremia, hypothyroidism, pulmonary embolism
status post completion of anticoagulation presenting with cough, congestion and shortness of breath with low-grade fever the past 3 to 4 days. Diffuse rhonchi on lung exam. Chest x-ray shows no acute abnormality. Labs show lactic acid 2.4.
Dexamethasone, DuoNebs every 6 hours. IV fluids. Check procal.
[2024-01-31 20:10] VITALS: BP 143/66; BMI 25.2
[2024-01-31] MEDS: COZAAR PO ×2 (20:57→21:00)
[2024-01-31] MEDS: TYLENOL 1000 MG PO (20:57)
[2024-01-31] MEDS: MUCINEX 600 MG PO (20:57)
[2024-01-31] MEDS: NSS 1000 IV (20:58)
[2024-01-31 21:54] LABS: Lactic Acid 1.5 mmol/L (0.7-2.0)
[2024-01-31 22:09] LABS: Procalcitonin 0.43 ng/ml (0.0-0.25)
[2024-01-31 23:58] VITALS: BP 130/70
[2024-02-01] MEDS: DECADRON 4 MG IV ×3 (00:51→16:35)
[2024-02-01] MEDS: SYNTHROID 75 MCG PO (05:39)
[2024-02-01 07:15] VITALS: BP 150/77
[2024-02-01 07:25] LABS: Hematocrit 30.2 % (37.0-47.0); Hemoglobin 10.3 g/dL (12.0-16.0); Mean Corp Hgb Conc. 34.1 g/dL (33.0-37.0); Mean Corpuscular Hgb 32.7 pg (27.0-31.0); Mean Corpuscular Volume 95.9 fL (81.0-99.0); Platelet Count 115 10^3/uL (130-400); Red Blood Cell Count 3.15 10^6/uL (4.20-5.40); Red Cell Dist. Width 13.3 % (11.5-14.5); White Blood Cell Count 8.8 10^3/uL (4.8-10.8)
[2024-02-01 07:49] LABS: Blood Urea Nitrogen 15 mg/dl (7-17); Carbon Dioxide 23 mmol/L (22-30); Chloride 107 mmol/L (98-107); Estimated Creatinine Clearance 58 ml/min; Glucose 135 mg/dl (70-99); Potassium 4.4 mmol/L (3.5-5.1); Sodium 138 mmol/L (135-145); eGFR > 60.00
[2024-02-01] MEDS: TYLENOL 1000 MG PO ×2 (08:33→21:36)
[2024-02-01] MEDS: MUCINEX 600 MG PO (08:33)
[2024-02-01] MEDS: COZAAR 50 MG PO ×2 (08:34→21:36)
--- NOTE | 2024-02-01 09:18 | W.PN.HOSP.TC ---
Today's Communication/Plan
-
see outlined plan
Assessment / Plan
Assessment / Plan
Assessment:
Persistent bronchitis
cystic lung disease from underlying Sjogren's Syndrome
- labeled as asthmatic in ER but no history of it
- CXR: Mild subsegmental atelectasis in the lung bases. Known bilateral pulmonary cysts are better appreciated on the prior chest CT. No focal consolidation, pleural effusion, or pneumothorax. The cardiomediastinal silhouette is normal. Chronic
degenerative changes of the spine..
- CT 01/26: Several small bilateral scattered pulmonary airspace/cystic structures are again seen bilaterally likely corresponding with the patient's history of Sjogren's syndrome. There is some bibasilar subsegmental atelectasis and/or scarring.
There is no significant hilar, mediastinal or axillary lymphadenopathy. No pleural or pericardial effusion is seen.
- COVID/Flu neg
- follow cultures
- add Doxycycline
- continue IV steroids
- continue nebs
- continue mucolytics, anti-tussives, IS, Acapella
- Pulmonary consult
Lactic acidosis
- improved with IVF; fluids can be capped
Sjogren's Syndrome
- continue cevimeline
Essential Hypertension
- continue losartan
Dyslipidemia
- continue atorvastatin
Hypothyroidism
- continue levothyroxine
prior hx of Pulmonary Embolism
Left carotid artery stenosis
Hx Colon Cancer s/p Surgery and Chemo
DVT ppx: Lovenox
Code: Full
Anticipated Discharge: > 48 hours
Subjective/Interval History
-
Date of Service: February 01, 2024
reports cough and SOB, some wheezing
denies cp
no fever/chills
Objective Data
-
Labs:
Laboratory Results
02/01/24
07:01
WBC 8.8
Hgb 10.3 L
Hct 30.2 L
Plt Count 115 L
Sodium 138
Potassium 4.4
Chloride 107
Carbon Dioxide 23
BUN 15
Creatinine 0.6
Glucose 135 H
Calcium 9.0
Vital Signs:
Vital Signs
Temp Pulse Resp BP Pulse Ox
97.7 F 60 16 150/77 95
02/01/24 07:15 02/01/24 07:15 02/01/24 07:15 02/01/24 07:15 02/01/24 07:15
Physical Exam
-
General: No Apparent Distress
HEENT: Normocephalic and Atraumatic
Respiratory: Wheezes and Rhonchi
Cardiac: Regular Rhythm and S1/S2
GI: Soft
Genito-urinary: No Costovertebral Tender
Musculoskeletal: No Edema
Neuro: AO x 3
Hematologic / Lymphatic: No Lymphadenopathy
Psych: Calm
Data Reviewed
-
Total Time Spent with Patient (in minutes): 42
Labs: Labs Reviewed by me
--- NOTE | 2024-02-01 09:55 | CON.PUL ---
Consultation
Consultation Request
Date/Time Consultation Requested: 02/01/2024928
Date/Time Consultation Performed: 02/01/2024 - 1099
Requesting Provider: Dr. Richardson
Performing Provider: Dr. Tovar
Reason for Consultation: Cough/SOB
Medical History
-
Chief Complaint: Coughing/shortness of breath
History of Present Illness:
78-year-old female with a past medical history of Sjogren's syndrome, history of COVID-19, history of PE, hypertension, history of colon cancer, hypothyroidism, GERD and carotid artery stenosis who presents with cough, shortness of breath and
fevers. Patient recently in the ER on 01/27/2024 with coughing spells, worsening nasal stuffiness and phlegm production with yellow sputum. D-dimer was checked and it was elevated at [address] of the chest was performed showing no evidence of a
PE, as well as bilateral cysts, bronchial wall thickening, and bibasilar linear scarring/atelectasis (L >R). There is a focal area of bronchiectasis in the posteromedial LLL. In the ER she was saturating 96% on room air and afebrile to 99.7 �F.
Labs showed lactic acidosis to 2.4, hyponatremia 134, normal WBC at 9.9, Hb 11.2 and COVID antigen negative. She was started on DuoNebs and Decadron and admitted to the hospitalist service. Pulmonary now consulted for additional
management/recommendations.
When I saw the patient her daughter and were in the room. She feels a little bit better since being admitted. She is on room air breathing comfortably. She does endorse some nasal congestion as well as chest congestion and she still has
coughing spells. She currently denies chest pain, headache, abdominal pain, nausea, fevers or chills.
Of note, patient follows with us in the office with Dr. Hunter, last office visit on 01/09/2024. At that time she said her shortness of breath improved. Patient does have cystic lung disease likely due to her history of Sjogren's syndrome. She did
have a PFT on 01/09/2024 which was normal with FVC 106% predicted, FEV1/FVC of 82 and DLCO 85% predicted. Her DLCO previously was 65% back in 2019. She was told to follow-up in May 2024.
PMHx: Sjogren syndrome, history of COVID-19 (August 2023), GERD without esophagitis, history of pulmonary embolism (August 2023 -likely provoked in setting of COVID-19), hypertension, history of colon cancer (2006) s/p resection and chemotherapy,
hypothyroidism, carotid artery stenosis, hypercholesterolemia
PSHx: Breast biopsy, colon cancer surgery
Past Medical History
Past Medical History: Other (Above as per HPI)
Past Surgical History: Other (Above as per HPI)
Social History
Tobacco: Non-smoker
Alcohol: Other (1 cup of alcohol every other day)
Drug: None
Personal:
Living: With Family
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
Family History
Family History: CAD (Father: CAD with history of VA), Cancer (Father: Colon cancer; mother: Lung cancer) and Hypertension (Mother, father, oldest daughter and 1 son)
Allergies / Home Medications
Allergies
Allergy/AdvReac Type Severity Reaction Status Date / Time
hydroxychloroquine Allergy Rash Verified 01/31/24 13:35
[From Plaquenil]
Home Medications
�Medication �Instructions �Recorded �Confirmed �Last Taken �Type
losartan 100 mg tablet (Cozaar) 50 mg PO BID Blood Pressure 06/18/08 01/31/24 01/31/24 History
atorvastatin 10 mg tablet 10 mg PO QPM High Cholesterol 08/27/23 01/31/24 01/30/24 History
biotin 1 tab PO QPM Supplement 08/27/23 01/31/24 01/30/24 History
cevimeline 30 mg capsule 30 mg PO BID xerostomia 08/27/23 01/31/24 01/31/24 History
cholecalciferol (vitamin D3) 25 25 mcg PO QPM Supplement 08/27/23 01/31/24 01/30/24 History
mcg (1,000 unit) tablet (Vitamin
D3)
levothyroxine 75 mcg tablet 75 mcg PO DAILY AT 0700 Thyroid 11/29/23 01/31/24 01/31/24 History
acetaminophen 500 mg tablet 1,000 mg PO BID 01/31/24 01/31/24 01/31/24 History
albuterol sulfate 90 mcg/actuation 2 puff inhalation R Q4 PRN 01/31/24 01/31/24 Unknown History
aerosol inhaler sob/wheezing
Review of Systems
-
History Source: Patient
All other systems: Negative unless noted (12 point ROS performed and is negative unless mentioned above.)
Vitals / Labs / Diagnostic Testing
Vital Signs
Temp Pulse Resp BP Pulse Ox
97.7 F 60 16 150/77 95
02/01/24 07:15 02/01/24 07:15 02/01/24 07:15 02/01/24 07:15 02/01/24 07:15
Lab Data
02/01/24 07:01
02/01/24 07:01
Microbiology
01/31/24 16:16 Nasal Swab Influenza Types A & B (ARPAN) - Final
Negative for Influenza A & B, NAAT
Negative results must be combined with clinical observations
and patient history.
Nucleic Acid Amplification test (NAAT)performed on the
[employer] platform.
Diagnostic Testing:
Physical Exam
-
HEENT: Normocephalic and Anicteric
Cardiovascular: S1/S2 and Peripheral Edema (negative)
Respiratory: Rales (Bilaterally), Rhonchi (Bilaterally) and Accessory Resp Muscle Use (negative)
GI: Soft, Non Distended, Non Tender and Normal Bowel Sounds
Neurology: Awake and Alert
Skin: Warm and Dry
General: Comfortable and Chills (Negative)
Assessment
-
Assessment: 78-year-old female with a past medical history of Sjogren's syndrome, history of COVID-19, history of PE, hypertension, history of colon cancer, hypothyroidism, GERD and carotid artery stenosis who presents with cough, shortness of
breath and fevers. Patient recently in the ER on 01/27/2024 with coughing spells, worsening nasal stuffiness and phlegm production with yellow sputum. D-dimer was checked and it was elevated at [address] of the chest was performed showing no
evidence of a PE, as well as bilateral cysts, bronchial wall thickening, and bibasilar linear scarring/atelectasis (L >R). There is a focal area of bronchiectasis in the posteromedial LLL. In the ER she was saturating 96% on room air and afebrile
to 99.7 �F. Labs showed lactic acidosis to 2.4, hyponatremia 134, normal WBC at 9.9, Hb 11.2 and COVID antigen negative. She was started on DuoNebs and Decadron and admitted to the hospitalist service. Pulmonary now consulted for additional
management/recommendations.
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
resection and chemotherapy, hypothyroidism, carotid artery stenosis, hypercholesterolemia
Impression:
#Acute cough - appears to be acute on chronic and likeyl releated to mucoid impaction seen in her lower lobes with focal bronchiectasis seen in her postero-medial LLL
#Cystic lung disease - likely related to her Hx of Sjogren's disease
#Anemia
#Sjogren's disease
#Hx of covid-19 with provoked PE
#Hypothyroidism
Plan:
- Continue decadron 4mg IV q8hr, and wean as tolerated -->could likely start to wean down to 2mg IV q8hr tomorrow
- I will start scheduled DuoNebs and add LABA/ICS with Symbicort 160mcg given the mucoid impaction seen on imaging
- I will order flutter valve; she may need chest PT if still having difficulty expectorating
- Raise mucinex to 1200mg q12hr
- Start scheduled tessalon perles to help with her paroxysmal coughing
- follow up blood Cx (collected 01/31/2024)
- Of note, there is no Hx of restrictive lung disease and no evidence of ILD as per her most recent CT chest (No signs of fibrosis or GGO or centrilobular/subpleural nodules, which would be seen in NSIP or LIP, respectively)
- Maintain MAP>65
- Goal BG 140-180mg/dL
- Replete electrolytes with K>4, Mg>2
- stress ulcer ppx: n/a
- DVT ppx: LMWH
Pulmonary service will continue to follow along. I will arrange for outpatient office follow-up with Dr. Hunter.
Total time spent today was 55 minutes for this encounter. Time includes reviewing laboratory test/imaging results, reviewing pertinent medical records, obtaining and reviewing medical history, performing an appropriate exam, ordering medications,
tests and procedures. Time also includes documentation of this encounter, coordinating patient care and communicating with other healthcare professionals. Total time does not include separately billed tests performed on this date of service.
Data:
CXR 01-31-2024: No acute cardiopulmonary process.
CTA Chest 01-27-2024:
No evidence of central pulmonary embolism.
Parenchymal findings again seen correlating with the patient's known history of Sjogren's syndrome.
Outpatient [facility] data:
PFT:
������ PFT 01/09/24: FVC 2.42/106%, FEV1 1.98/117%, ratio 82. TLC 3.80/87%, DLCO 15.39/85%. This is normal. DLCO has improved.
6 MWT:
������ 09/09/2023- 6 MWT- resting room air sat 98% with heart rate 78, after 450 feet pulse ox 99% with heart rate 96. No subjective shortness of breath.
RADIOGRAPHIC STUDIES:
������ CXR 11/29/23: no acute findings
�������CT chest 11/29/23: negative PE. Bilateral cystic changes, chronic
�������Doppler 08/28/23: negative bilateral DVT
�������CT chest 08/27/23: scattered small bilateral pulmonary emboli. Normal RV/LV ratio. No adenopathy. There are scattered cystic lung disease.
�������CXR 08/27/23: negative
�������CT chest 09/09/18: negative for PE. Narrowing of right brachiocephalic vein chronic. Multiple scattered pulmonary cystic lesionsand basilar atelectasis. . Compared to prior studies, overall cystic disease is stable
�������.
CARDIAC STUDIES:
������ Echo 12/02/23: Normal biventricular function, moderate MR, right heart pressures could not be determined
�������Echo 08/28/23: Normal biventrricular function, unable to measure pressure.
LABS:
������ 12/28/23: Normal anticardiolipin antibody
�������12/02/23: White count 20.6, hemoglobin 11, normal serum bicarbonate, creatinine, calcium
�������09/28/23: Normal IgG, IgA, IgM, normal double-stranded DNA
�������08/29/23: Hemoglobin 11.1, d-dimer greater than 20, normal serum bicarbonate, creatinine, calcium, troponin. ProBNP 905
�������08/28/23: Positive Covid
�������04/06/22: Positive rheumatoid factor (512), positive NAOMY titer 1:640, speckled, positive double-stranded DNA IgG antibody 92.
[2024-02-01] MEDS: NSS IV (11:39)
[2024-02-01] MEDS: TESSALON PERLES 100 MG PO (13:50)
[2024-02-01] MEDS: VIBRAMYCIN 100 MG PO ×2 (13:50→21:35)
[2024-02-01 15:00] VITALS: BP 114/84
[2024-02-01] MEDS: LOVENOX 40 MG SC (18:11)
[2024-02-01] MEDS: LIPITOR 10 MG PO (18:11)
[2024-02-01] MEDS: SYMBICORT 160/4.5 MCG INHALER 2 PUFF INH (20:25)
[2024-02-01] MEDS: DUONEB 3 ML INH (20:25)
[2024-02-01] MEDS: MUCINEX PO (21:30)
[2024-02-01] MEDS: MUCINEX 1200 MG PO (21:35)
[2024-02-01] MEDS: TESSALON PERLES 200 MG PO (21:36)
[2024-02-01 23:55] VITALS: BP 129/64
[2024-02-02] VITALS (7 sets, daily range): BP systolic 112–163; BP diastolic 64–93; PULSE 80–91; O2SAT 95–97
[2024-02-02] MEDS: DECADRON 4 MG IV ×3 (00:30→17:05)
--- NOTE | 2024-02-02 03:31 | PTCARENOTE ---
After receiving her breathing treatment, patient complaining of a 'chest pressure'. Patient denies pain. VSS, HR 80-100. EKG obtained showing SR with 1st degree AV block, left ventricular hypertrophy with repolarization abnormality. Patient then
reported 'feeling better'. 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
[2024-02-02] MEDS: SYNTHROID 75 MCG PO (05:43)
[2024-02-02] MEDS: DUONEB 3 ML INH ×3 (07:33→19:52)
[2024-02-02] MEDS: SYMBICORT 160/4.5 MCG INHALER 2 PUFF INH ×2 (07:33→19:52)
[2024-02-02 08:25] LABS: Hemoglobin 10.4 g/dL (12.0-16.0); Mean Corp Hgb Conc. 33.5 g/dL (33.0-37.0); Mean Corpuscular Hgb 32.4 pg (27.0-31.0); Mean Corpuscular Volume 96.6 fL (81.0-99.0); Mean Platelet Volume 11.4 fL (7.4-10.4); Platelet Count 151 10^3/uL (130-400); Red Blood Cell Count 3.21 10^6/uL (4.20-5.40); Red Cell Dist. Width 13.3 % (11.5-14.5); White Blood Cell Count 14.5 10^3/uL (4.8-10.8)
[2024-02-02 08:36] LABS: Blood Urea Nitrogen 20 mg/dl (7-17); Calcium 9.2 mg/dl (8.4-10.2); Carbon Dioxide 20 mmol/L (22-30); Chloride 110 mmol/L (98-107); Estimated Creatinine Clearance 58 ml/min; Glucose 113 mg/dl (70-99); Magnesium 1.9 mg/dl (1.6-2.3); Potassium 4.2 mmol/L (3.5-5.1); Sodium 137 mmol/L (135-145); eGFR > 60.00
--- NOTE | 2024-02-02 09:25 | W.PN.PUL3 ---
Today's Communication / Plan
-
Continue DuoNebs
LABA/ICS with Symbicort 160mcg
Discharged home on DuoNebs and Symbicort (or an equivalent LABA/ICS as per her insurance coverage)
CM consult for nebulizer with tubing
Mucolytics with flutter valve; may benefit from vest therapy given focal bronchiectasis seen on most recent CT chest on 01/27/2024
Antitussants
PT/OT
Pulmonary service will continue to follow � eventual outpatient follow-up with Dr. Hunter
Assessment
-
Assessment: 78-year-old female with a past medical history of Sjogren's syndrome, history of COVID-19, history of PE, hypertension, history of colon cancer, hypothyroidism, GERD and carotid artery stenosis who presents with cough, shortness of
breath and fevers. Patient recently in the ER on 01/27/2024 with coughing spells, worsening nasal stuffiness and phlegm production with yellow sputum. D-dimer was checked and it was elevated at [address] of the chest was performed showing no
evidence of a PE, as well as bilateral cysts, bronchial wall thickening, and bibasilar linear scarring/atelectasis (L >R). There is a focal area of bronchiectasis in the posteromedial LLL. In the ER she was saturating 96% on room air and afebrile
to 99.7 �F. Labs showed lactic acidosis to 2.4, hyponatremia 134, normal WBC at 9.9, Hb 11.2 and COVID antigen negative. She was started on DuoNebs and Decadron and admitted to the hospitalist service. Pulmonary now consulted for additional
management/recommendations.
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
resection and chemotherapy, hypothyroidism, carotid artery stenosis, hypercholesterolemia
Impression:
#Acute cough - appears to be acute on chronic and likely related to mucoid impaction seen in her lower lobes with focal bronchiectasis seen in her postero-medial LLL
#DPLD with cystic lung disease - likely related to her Hx of Sjogren's disease
#Anemia
#Sjogren's disease
#Hx of covid-19 with provoked PE
#Hypothyroidism
Plan:
- Continue decadron 4mg IV q8hr, and wean as tolerated -->wean down to 2mg IV q8hr today
- Continue scheduled DuoNebs and LABA/ICS with Symbicort 160mcg given the mucoid impaction seen on imaging --> she should be DC'd home on a LABA/ICS with prn nebulizers
- Case management consult for a nebulizer
- Continue flutter valve; she may need chest PT (i.e., vest) if still having difficulty expectorating
- Continue mucinex to 1200mg q12hr
- Continue scheduled Tessalon Perles to help with her paroxysmal coughing
- follow up blood Cx (collected 01/31/2024)
- Of note, there is no Hx of restrictive lung disease and no evidence of interstitial pneumonia as per her most recent CT chest (no fibrosis, GGO or centrilobular/subpleural nodules, which is seen in NSIP or LIP, respectively)
- Maintain MAP>65
- Goal BG 140-180mg/dL
- Replete electrolytes with K>4, Mg>2
- stress ulcer ppx: n/a
- DVT ppx: LMWH
Pulmonary service will continue to follow along. I will arrange for outpatient office follow-up with Dr. Hunter.
Total time spent today was 35 minutes for this encounter. Time includes reviewing laboratory test/imaging results, reviewing pertinent medical records, obtaining and reviewing medical history, performing an appropriate exam, ordering medications,
tests and procedures. Time also includes documentation of this encounter, coordinating patient care and communicating with other healthcare professionals. Total time does not include separately billed tests performed on this date of service.
Data:
CXR 01-31-2024: No acute cardiopulmonary process.
CTA Chest 01-27-2024:
No evidence of central pulmonary embolism.
Parenchymal findings again seen correlating with the patient's known history of Sjogren's syndrome.
Outpatient [facility] data:
PFT:
������ PFT 01/09/24: FVC 2.42/106%, FEV1 1.98/117%, ratio 82. TLC 3.80/87%, DLCO 15.39/85%. This is normal. DLCO has improved.
6 MWT:
������ 09/09/2023- 6 MWT- resting room air sat 98% with heart rate 78, after 450 feet pulse ox 99% with heart rate 96. No subjective shortness of breath.
RADIOGRAPHIC STUDIES:
������ CXR 11/29/23: no acute findings
�������CT chest 11/29/23: negative PE. Bilateral cystic changes, chronic
�������Doppler 08/28/23: negative bilateral DVT
�������CT chest 08/27/23: scattered small bilateral pulmonary emboli. Normal RV/LV ratio. No adenopathy. There are scattered cystic lung disease.
�������CXR 08/27/23: negative
�������CT chest 09/09/18: negative for PE. Narrowing of right brachiocephalic vein chronic. Multiple scattered pulmonary cystic lesionsand basilar atelectasis. . Compared to prior studies, overall cystic disease is stable
�������.
CARDIAC STUDIES:
������ Echo 12/02/23: Normal biventricular function, moderate MR, right heart pressures could not be determined
�������Echo 08/28/23: Normal biventrricular function, unable to measure pressure.
LABS:
������ 12/28/23: Normal anticardiolipin antibody
�������12/02/23: White count 20.6, hemoglobin 11, normal serum bicarbonate, creatinine, calcium
�������09/28/23: Normal IgG, IgA, IgM, normal double-stranded DNA
�������08/29/23: Hemoglobin 11.1, d-dimer greater than 20, normal serum bicarbonate, creatinine, calcium, troponin. ProBNP 905
�������08/28/23: Positive Covid
�������04/06/22: Positive rheumatoid factor (512), positive NAOMY titer 1:640, speckled, positive double-stranded DNA IgG antibody 92.
Subjective Data
-
Date of Service:
Date of Service: February 02, 2024
Chief Complaint: Pulmonary Follow Up
Subjective:
Patient seen today at bedside. at bedside. All questions were answered. She says the DuoNebs helps her feel better but the Symbicort was giving her chest heaviness around her chest. She feels it is because she took such a deep
inspiration with a spacer that was causing her symptoms. Chest tightness occurred last night and again this morning. She currently denies chest heaviness, chest pain or shortness of breath. Denies headache, abdominal pain, diarrhea, fevers or
chills.
Review of Systems
General: Other (12 point ROS performed and is negative unless mentioned above.)
Objective Data
Data Reviewed
Vital Signs / I&O / Oxygen:
Vital Signs
Temp Pulse Resp BP Pulse Ox
97.7 F 78 16 139/79 97
02/02/24 07:10 02/02/24 07:36 02/02/24 07:36 02/02/24 07:10 02/02/24 07:36
Intake and Output
02/01/24 02/02/24 02/03/24
06:59 06:59 06:59
Intake Total 1200 / 1200
Balance 1200 / 1200
SaO2 97
Physical Exam
General: Respiratory Distress (Negative), Comfortable, Sweats (Negative) and Good Appetite
HEENT: Normocephalic and Anicteric
Cardiovascular: S1-S2, Murmur (Negative) and Peripheral Edema (Negative)
Respiratory: Wheeze (Negative), Crackles (Negative), Rhonchi (Bilaterally in lower extremities) and Non-Labored Respirations
GI: Soft, Non Distended, Non Tender and Normal Bowel Sounds
Neurology: AO x 3 and Tremors (Negative)
Skin: Warm and Dry
Labs/Micro/Reports
Lab Data
02/02/24 06:52
02/02/24 06:52
Microbiology
01/31/24 16:16 Blood/Venous Blood Culture - Preliminary
No Growth in 24 hours- Final report to follow
01/31/24 13:55 Blood/Venous Blood Culture - Preliminary
No Growth in 24 hours- Final report to follow
01/31/24 16:16 Nasal Swab Influenza Types A & B (ARPAN) - Final
Negative for Influenza A & B, NAAT
Negative results must be combined with clinical observations
and patient history.
Nucleic Acid Amplification test (NAAT)performed on the
[employer] platform.
--- NOTE | 2024-02-02 09:40 | W.PN.HOSP.TC ---
Today's Communication/Plan
-
continue IV steroids
add h2 cyn
tele, trop for vague chest pressure
Assessment / Plan
Assessment / Plan
Assessment:
Persistent bronchitis
cystic lung disease from underlying Sjogren's Syndrome
- labeled as asthmatic in ER but no history of asthma
- CXR: Mild subsegmental atelectasis in the lung bases. Known bilateral pulmonary cysts are better appreciated on the prior chest CT. No focal consolidation, pleural effusion, or pneumothorax. The cardiomediastinal silhouette is normal. Chronic
degenerative changes of the spine..
- CT 01/26: Several small bilateral scattered pulmonary airspace/cystic structures are again seen bilaterally likely corresponding with the patient's history of Sjogren's syndrome. There is some bibasilar subsegmental atelectasis and/or scarring.
There is no significant hilar, mediastinal or axillary lymphadenopathy. No pleural or pericardial effusion is seen.
- COVID/Flu neg
- follow cultures
- continue Doxycycline
- continue IV steroids (add H2 cyn while on steroids)
- continue nebs scheduled and prn
- continue Symbicort
- continue mucolytics, anti-tussives, IS, Acapella
- Pulmonary consulted
Chest pressure
- likely related to above process
- EKG sinus rhythm, LVH
- check trop
- add tele
Lactic acidosis
- improved with IVF
Sjogren's Syndrome
- continue cevimeline
Essential Hypertension
- continue losartan
Dyslipidemia
- continue atorvastatin
Hypothyroidism
- continue levothyroxine
prior hx of Pulmonary Embolism
Left carotid artery stenosis
Hx Colon Cancer s/p Surgery and Chemo
DVT ppx: Lovenox
Code: Full
Anticipated Discharge: > 48 hours
Subjective/Interval History
-
Date of Service: February 02, 2024
remains with cough and wheezing
also reports some bilateral chest pressure which occurred overnight, now resolved
Objective Data
-
Labs:
Laboratory Results
02/02/24
06:52
WBC 14.5 H
Hgb 10.4 L
Hct 31.0 L
Plt Count 151 D
Sodium 137
Potassium 4.2
Chloride 110 H
Carbon Dioxide 20 L
BUN 20 H
Creatinine 0.6
Glucose 113 H
Calcium 9.2
Vital Signs:
Vital Signs
Temp Pulse Resp BP Pulse Ox
97.7 F 78 16 139/79 97
02/02/24 07:10 02/02/24 07:36 02/02/24 07:36 02/02/24 07:10 02/02/24 07:36
I&O
02/01/24 02/02/24 02/03/24
06:59 06:59 06:59
Intake Total 1200 / 1200
Balance 1200 / 1200
Physical Exam
-
General: No Apparent Distress
HEENT: Normocephalic and Atraumatic
Respiratory: Wheezes and Rhonchi
Cardiac: Regular Rhythm and S1/S2
GI: Soft
Genito-urinary: No Costovertebral Tender
Neuro: AO x 3
Hematologic / Lymphatic: No Lymphadenopathy
Psych: Calm
Data Reviewed
-
Total Time Spent with Patient (in minutes): 40
Labs: Labs Reviewed by me
[2024-02-02] MEDS: MUCINEX 1200 MG PO ×2 (10:21→21:24)
[2024-02-02] MEDS: TESSALON PERLES 200 MG PO ×2 (10:21→21:24)
[2024-02-02] MEDS: VIBRAMYCIN 100 MG PO ×2 (10:22→21:24)
[2024-02-02] MEDS: TYLENOL 1000 MG PO ×2 (10:22→21:24)
[2024-02-02] MEDS: COZAAR 50 MG PO ×2 (10:22→21:23)
--- NOTE | 2024-02-02 10:25 | CM ---
Met with patient at bedside; initial assessment completed
Pharmacy verified: [facility], [facility] [place]
Patient reported she lives in bi-level home with ; no steps to enter 5 & 6 steps between floors; powder room on 1st level of house; patient's bedroom and full bath on 2nd floor has tub w/shower
PLOF: reported that she was independent with ADLs, ambulation, and steps; drives
DME: [employer]
Transportation: will provide transport home
SNF/Rehab/Home Care utilization history: none
Plan: discharge to home; CM will monitor for home needs
[2024-02-02 10:39] LABS: Troponin I 0.023 ng/ml
[2024-02-02] MEDS: LIPITOR 10 MG PO (17:04)
[2024-02-02] MEDS: LOVENOX 40 MG SC (17:04)
[2024-02-02] MEDS: DECADRON 2 MG IV (23:00)
[2024-02-03 03:13] VITALS: BP 146/69
[2024-02-03] MEDS: SYNTHROID 75 MCG PO (05:39)
[2024-02-03] MEDS: DUONEB 3 ML INH ×3 (07:40→20:11)
[2024-02-03] MEDS: SYMBICORT 160/4.5 MCG INHALER 2 PUFF INH ×2 (07:40→20:11)
[2024-02-03 08:15] LABS: Hematocrit 32.6 % (37.0-47.0); Hemoglobin 10.9 g/dL (12.0-16.0); Mean Corp Hgb Conc. 33.4 g/dL (33.0-37.0); Mean Corpuscular Hgb 32.4 pg (27.0-31.0); Mean Platelet Volume 11.1 fL (7.4-10.4); Platelet Count 199 10^3/uL (130-400); Red Blood Cell Count 3.36 10^6/uL (4.20-5.40); Red Cell Dist. Width 13.6 % (11.5-14.5); White Blood Cell Count 15.7 10^3/uL (4.8-10.8)
[2024-02-03 08:33] VITALS: BP 172/78
[2024-02-03 08:43] LABS: Blood Urea Nitrogen 20 mg/dl (7-17); Calcium 10.1 mg/dl (8.4-10.2); Carbon Dioxide 20 mmol/L (22-30); Chloride 107 mmol/L (98-107); Estimated Creatinine Clearance 58 ml/min; Glucose 105 mg/dl (70-99); Potassium 4.7 mmol/L (3.5-5.1); Sodium 139 mmol/L (135-145); eGFR > 60.00
--- NOTE | 2024-02-03 09:09 | W.PN.PUL.V3 ---
Today's Communication / Plan
-
Wean oxygen.
Home nebulizer.
Inhalers.
Mucolytic's
Outpatient pulmonary follow-up
Assessment
-
Assessment: 78-year-old female with a past medical history of Sjogren's syndrome, history of COVID-19, history of PE, hypertension, history of colon cancer, hypothyroidism, GERD and carotid artery stenosis who presents with cough, shortness of
breath and fevers. Patient recently in the ER on 01/27/2024 with coughing spells, worsening nasal stuffiness and phlegm production with yellow sputum. D-dimer was checked and it was elevated at [address] of the chest was performed showing no
evidence of a PE, as well as bilateral cysts, bronchial wall thickening, and bibasilar linear scarring/atelectasis (L >R). There is a focal area of bronchiectasis in the posteromedial LLL. In the ER she was saturating 96% on room air and afebrile
to 99.7 �F. Labs showed lactic acidosis to 2.4, hyponatremia 134, normal WBC at 9.9, Hb 11.2 and COVID antigen negative. She was started on DuoNebs and Decadron and admitted to the hospitalist service. Pulmonary now consulted for additional
management/recommendations.
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
resection and chemotherapy, hypothyroidism, carotid artery stenosis, hypercholesterolemia
Impression:
#Acute cough - appears to be acute on chronic and likely related to mucoid impaction seen in her lower lobes with focal bronchiectasis seen in her postero-medial LLL
#DPLD with cystic lung disease - likely related to her Hx of Sjogren's disease
#Anemia
#Sjogren's disease
#Hx of covid-19 with provoked PE
#Hypothyroidism
Plan:.
Respiratory status slowly improving-major complaint continues to be nonproductive cough and difficulties mobilizing secretions.
Wean FiO2.
Nebulizer-we'll discuss with case management-arrange home nebulizer..
Continue Symbicort
Mucolytic's
Tessalon.
Aspiration precautions.
Steroid taper-converts to prednisone 40 mg daily-start 02/04/24
Follow radiographically
DVT prophylaxis-on Lovenox
Outpatient follow-up with Dr. Hunter.
Data:
CXR 01-31-2024: No acute cardiopulmonary process.
CTA Chest 01-27-2024:
No evidence of central pulmonary embolism.
Parenchymal findings again seen correlating with the patient's known history of Sjogren's syndrome.
Outpatient [facility] data:
PFT:
������ PFT 01/09/24: FVC 2.42/106%, FEV1 1.98/117%, ratio 82. TLC 3.80/87%, DLCO 15.39/85%. This is normal. DLCO has improved.
6 MWT:
������ 09/09/2023- 6 MWT- resting room air sat 98% with heart rate 78, after 450 feet pulse ox 99% with heart rate 96. No subjective shortness of breath.
RADIOGRAPHIC STUDIES:
������ CXR 11/29/23: no acute findings
�������CT chest 11/29/23: negative PE. Bilateral cystic changes, chronic
�������Doppler 08/28/23: negative bilateral DVT
�������CT chest 08/27/23: scattered small bilateral pulmonary emboli. Normal RV/LV ratio. No adenopathy. There are scattered cystic lung disease.
�������CXR 08/27/23: negative
�������CT chest 09/09/18: negative for PE. Narrowing of right brachiocephalic vein chronic. Multiple scattered pulmonary cystic lesionsand basilar atelectasis. . Compared to prior studies, overall cystic disease is stable
�������.
CARDIAC STUDIES:
������ Echo 12/02/23: Normal biventricular function, moderate MR, right heart pressures could not be determined
�������Echo 08/28/23: Normal biventrricular function, unable to measure pressure.
LABS:
������ 12/28/23: Normal anticardiolipin antibody
�������12/02/23: White count 20.6, hemoglobin 11, normal serum bicarbonate, creatinine, calcium
�������09/28/23: Normal IgG, IgA, IgM, normal double-stranded DNA
�������08/29/23: Hemoglobin 11.1, d-dimer greater than 20, normal serum bicarbonate, creatinine, calcium, troponin. ProBNP 905
�������08/28/23: Positive Covid
�������04/06/22: Positive rheumatoid factor (512), positive NAOMY titer 1:640, speckled, positive double-stranded DNA IgG antibody 92.
Subjective Data
-
Date of Service:
Date of Service: February 03, 2024
Chief Complaint: Pulmonary Follow Up and Dyspnea Follow Up
Subjective:
. Still with some cough, thick secretions, difficult to mobilize them, no chest pain or abdominal pain
Review of Systems
General: Other ( per HPI)
Objective Data
Data Reviewed
Vital Signs / I&O:
Vital Signs
Temp Pulse Resp BP Pulse Ox
98.3 F 86 18 172/78 93
02/03/24 08:33 02/03/24 08:33 02/03/24 08:33 02/03/24 08:33 02/03/24 08:33
Intake and Output
02/02/24 02/03/24 02/04/24
06:59 06:59 06:59
Intake Total 1200 / 1200 1320 / 1320
Balance 1200 / 1200 1320 / 1320
SaO2: 93
Physical Exam
General: Respiratory Distress (Negative), Comfortable, Sweats (Negative) and Good Appetite
HEENT: Normocephalic and Anicteric
Cardiovascular: S1-S2, Murmur (Negative) and Peripheral Edema (Negative)
Respiratory: Wheeze (Negative), Crackles (Negative), Rhonchi (Bilaterally in lower extremities) and Non-Labored Respirations
GI: Soft, Non Distended, Non Tender and Normal Bowel Sounds
Neurology: AO x 3 and Tremors (Negative)
Skin: Warm and Dry
Labs/Micro/Reports
Lab Data
02/03/24 07:38
02/03/24 07:38
Microbiology
01/31/24 16:16 Blood/Venous Blood Culture - Preliminary
No Growth in 48 hours- Final report to follow
01/31/24 13:55 Blood/Venous Blood Culture - Preliminary
No Growth in 48 hours- Final report to follow
01/31/24 16:16 Nasal Swab Influenza Types A & B (ARPAN) - Final
Negative for Influenza A & B, NAAT
Negative results must be combined with clinical observations
and patient history.
Nucleic Acid Amplification test (NAAT)performed on the
[employer] platform.
[2024-02-03] MEDS: TYLENOL 1000 MG PO ×2 (09:45→19:54)
[2024-02-03] MEDS: MUCINEX 1200 MG PO ×2 (09:45→19:55)
[2024-02-03] MEDS: TESSALON PERLES 200 MG PO ×2 (09:46→19:54)
[2024-02-03] MEDS: DECADRON 2 MG IV ×2 (09:46→17:20)
[2024-02-03] MEDS: COZAAR 50 MG PO ×2 (09:46→19:54)
[2024-02-03] MEDS: VIBRAMYCIN 100 MG PO ×2 (09:46→19:54)
--- NOTE | 2024-02-03 11:23 | W.PN.HOSP.TC ---
Addendum entered and electronically signed by Keegan Browne MD 02/03/24 11:35:
Leukocytosis probably related to steroids, will need to follow
Original Note:
Today's Communication/Plan
-
oil changer to oral steroids
Assessment / Plan
Assessment / Plan
Assessment:
Persistent bronchitis
cystic lung disease from underlying Sjogren's Syndrome
- labeled as asthmatic in ER but no history of asthma
- CXR: Mild subsegmental atelectasis in the lung bases. Known bilateral pulmonary cysts are better appreciated on the prior chest CT. No focal consolidation, pleural effusion, or pneumothorax. The cardiomediastinal silhouette is normal. Chronic
degenerative changes of the spine..
- CT 01/26: Several small bilateral scattered pulmonary airspace/cystic structures are again seen bilaterally likely corresponding with the patient's history of Sjogren's syndrome. There is some bibasilar subsegmental atelectasis and/or scarring.
There is no significant hilar, mediastinal or axillary lymphadenopathy. No pleural or pericardial effusion is seen.
- COVID/Flu neg
- follow cultures
- continue Doxycycline
- continue IV steroids (add H2 cyn while on steroids), dose decreased, will plan to oil changer to oral tomorrow
- continue nebs scheduled and prn
- continue Symbicort
- continue mucolytics, anti-tussives, IS, Acapella
- Pulmonary consulted, discussed with Dr. Nation, his office will arrange for DME equipment recommended by Pulm
Chest pressure
- likely related to above process
- EKG sinus rhythm, LVH
- trop 0.023
- continue tele
Lactic acidosis
- improved with IVF
Sjogren's Syndrome
- continue cevimeline
Essential Hypertension
- continue losartan
Dyslipidemia
- continue atorvastatin
Hypothyroidism
- continue levothyroxine
prior hx of Pulmonary Embolism
Left carotid artery stenosis
Hx Colon Cancer s/p Surgery and Chemo
DVT ppx: Lovenox
Code: Full
Anticipated Discharge: 24 - 48 hours
Subjective/Interval History
-
Date of Service: February 03, 2024
Pt believes she is breathing better
Objective Data
-
Labs:
Laboratory Results
02/03/24
07:38
WBC 15.7 H
Hgb 10.9 L
Hct 32.6 L
Plt Count 199 D
Sodium 139
Potassium 4.7
Chloride 107
Carbon Dioxide 20 L
BUN 20 H
Creatinine 0.6
Glucose 105 H
Calcium 10.1
Vital Signs:
Vital Signs
Temp Pulse Resp BP Pulse Ox
98.3 F 86 18 172/78 93
02/03/24 08:33 02/03/24 08:33 02/03/24 08:33 02/03/24 08:33 02/03/24 09:09
I&O
02/02/24 02/03/24 02/04/24
06:59 06:59 06:59
Intake Total 1200 / 1200 1320 / 1320
Balance 1200 / 1200 1320 / 1320
Review of Systems
-
History Source: Patient, Physician (reviewed with Dr. Nation) and Coordinated Provider
Constitutional: Denies Fever
EENT: Reports No Symptoms Reported
Respiratory: Denies Trouble Breathing (much improved)
Cardiac: Reports No Symptoms
Genitourinary: Reports No Symptoms
Physical Exam
-
General: Well Developed, Well Nourished and No Apparent Distress
HEENT: Normocephalic, Atraumatic and Moist Mucous Membranes
Respiratory: Wheezes (minimal end expiratory wheeze on forced expiration)
Cardiac: Regular Rhythm and S1/S2
GI: Soft, Nontender and Nondistended
Musculoskeletal: No Clubbing, No Cyanosis and No Edema
Skin: Warm and Dry
Neuro: Awake, Alert and Oriented
[2024-02-03 11:32] VITALS: BP 127/83
[2024-02-03 15:50] VITALS: BP 146/65
--- NOTE | 2024-02-03 15:51 | CM ---
CM reviewed chart and discussed with Dr Browne and pulhayden/Dr Nation
CM to arrange for nebulizer
Call with [employer] and nebs in stock and available for delivery
Bedside meeting with pt and spouse- in agreement with [employer] as DME provider
Script and clinicals faxed to [facility]
They will coordinate delivery of neb to home with spouse
No other dc needs noted
Discharge Disposition- home with new nebulizer/[employer]
[2024-02-03] MEDS: LOVENOX 40 MG SC (17:19)
[2024-02-03] MEDS: LIPITOR 10 MG PO (17:19)
[2024-02-03 19:54] VITALS: BP 148/83
[2024-02-03 23:31] VITALS: BP 154/76
[2024-02-04] VITALS (8 sets, daily range): BP systolic 143–176; BP diastolic 75–94; PULSE 91; O2SAT 96
[2024-02-04] MEDS: SYNTHROID 75 MCG PO (04:58)
[2024-02-04 05:55] LABS: Hepatitis C Antibody Negative (Negative)
[2024-02-04 06:05] LABS: Hematocrit 28.8 % (37.0-47.0); Hemoglobin 9.8 g/dL (12.0-16.0); Mean Corpuscular Hgb 32.6 pg (27.0-31.0); Mean Corpuscular Volume 95.7 fL (81.0-99.0); Mean Platelet Volume 10.8 fL (7.4-10.4); Platelet Count 178 10^3/uL (130-400); Red Blood Cell Count 3.01 10^6/uL (4.20-5.40); Red Cell Dist. Width 13.4 % (11.5-14.5)
[2024-02-04 06:35] LABS: Blood Urea Nitrogen 21 mg/dl (7-17); Calcium 9.4 mg/dl (8.4-10.2); Carbon Dioxide 23 mmol/L (22-30); Chloride 111 mmol/L (98-107); Estimated Creatinine Clearance 50 ml/min; Glucose 96 mg/dl (70-99); Potassium 4.8 mmol/L (3.5-5.1); Sodium 135 mmol/L (135-145); eGFR > 60.00
[2024-02-04] MEDS: SYMBICORT 160/4.5 MCG INHALER 2 PUFF INH ×2 (07:27→19:57)
[2024-02-04] MEDS: DUONEB 3 ML INH ×3 (07:27→19:57)
--- NOTE | 2024-02-04 09:25 | W.PN.PUL.V3 ---
Today's Communication / Plan
-
Antitussives
Home nebulizer
Slow prednisone taper
Outpatient pulmonary follow-up
Assessment
-
Assessment: 78-year-old female with a past medical history of Sjogren's syndrome, history of COVID-19, history of PE, hypertension, history of colon cancer, hypothyroidism, GERD and carotid artery stenosis who presents with cough, shortness of
breath and fevers. Patient recently in the ER on 01/27/2024 with coughing spells, worsening nasal stuffiness and phlegm production with yellow sputum. D-dimer was checked and it was elevated at [address] of the chest was performed showing no
evidence of a PE, as well as bilateral cysts, bronchial wall thickening, and bibasilar linear scarring/atelectasis (L >R). There is a focal area of bronchiectasis in the posteromedial LLL. In the ER she was saturating 96% on room air and afebrile
to 99.7 �F. Labs showed lactic acidosis to 2.4, hyponatremia 134, normal WBC at 9.9, Hb 11.2 and COVID antigen negative. She was started on DuoNebs and Decadron and admitted to the hospitalist service. Pulmonary now consulted for additional
management/recommendations.
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
resection and chemotherapy, hypothyroidism, carotid artery stenosis, hypercholesterolemia
Impression:
#Acute cough - appears to be acute on chronic and likely related to mucoid impaction seen in her lower lobes with focal bronchiectasis seen in her postero-medial LLL
#DPLD with cystic lung disease - likely related to her Hx of Sjogren's disease
#Anemia
#Sjogren's disease
#Hx of covid-19 with provoked PE
#Hypothyroidism
Plan:.
Respiratory status slowly improving-major complaint continues to be nonproductive cough and difficulties mobilizing secretions-some wheezing and right basilar pleural rub noted on exam
Attempt to wean FiO2
Nebulizer-we'll discuss with case management-arrange home nebulizer-patient reports already arranged
Continue Symbicort
Mucolytic's
Tessalon.
Aspiration precautions.
Steroid taper-converts to prednisone 40 mg daily-start 02/04/24-when employee slow taper-40 mg daily for 4-5 days, then 30 mg daily for 4 to 5 days and then 20 mg etc., etc.
Follow radiographically
DVT prophylaxis-on Lovenox
If discharged consider antitussives-I told her to take Robitussin DM or Mucinex DM at nighttime, Robitussin during the daytime and consideration towards Phenergan with codeine at time of discharge
Outpatient follow-up with Dr. Hunter.
Data:
CXR 01-31-2024: No acute cardiopulmonary process.
CTA Chest 01-27-2024:
No evidence of central pulmonary embolism.
Parenchymal findings again seen correlating with the patient's known history of Sjogren's syndrome.
Outpatient [facility] data:
PFT:
������ PFT 01/09/24: FVC 2.42/106%, FEV1 1.98/117%, ratio 82. TLC 3.80/87%, DLCO 15.39/85%. This is normal. DLCO has improved.
6 MWT:
������ 09/09/2023- 6 MWT- resting room air sat 98% with heart rate 78, after 450 feet pulse ox 99% with heart rate 96. No subjective shortness of breath.
RADIOGRAPHIC STUDIES:
������ CXR 11/29/23: no acute findings
�������CT chest 11/29/23: negative PE. Bilateral cystic changes, chronic
�������Doppler 08/28/23: negative bilateral DVT
�������CT chest 08/27/23: scattered small bilateral pulmonary emboli. Normal RV/LV ratio. No adenopathy. There are scattered cystic lung disease.
�������CXR 10/24/23: negative
�������CT chest 09/09/18: negative for PE. Narrowing of right brachiocephalic vein chronic. Multiple scattered pulmonary cystic lesionsand basilar atelectasis. . Compared to prior studies, overall cystic disease is stable
�������.
CARDIAC STUDIES:
������ Echo 12/02/23: Normal biventricular function, moderate MR, right heart pressures could not be determined
�������Echo 08/28/23: Normal biventrricular function, unable to measure pressure.
LABS:
������ 12/28/23: Normal anticardiolipin antibody
�������12/02/23: White count 20.6, hemoglobin 11, normal serum bicarbonate, creatinine, calcium
�������09/28/23: Normal IgG, IgA, IgM, normal double-stranded DNA
�������08/29/23: Hemoglobin 11.1, d-dimer greater than 20, normal serum bicarbonate, creatinine, calcium, troponin. ProBNP 905
�������08/28/23: Positive Covid
�������04/06/22: Positive rheumatoid factor (512), positive NAOMY titer 1:640, speckled, positive double-stranded DNA IgG antibody 92.
Subjective Data
-
Date of Service:
Date of Service: February 04, 2024
Chief Complaint: Pulmonary Follow Up and Dyspnea Follow Up
Subjective:
Still with significant cough, still with some wheezing, nonproductive cough, no chest pain or abdominal pain
Review of Systems
General: Other (Per HPI)
Objective Data
Data Reviewed
Vital Signs / I&O:
Vital Signs
Temp Pulse Resp BP Pulse Ox
98.2 F 62 16 176/82 96
02/04/24 07:15 02/04/24 07:28 02/04/24 07:28 02/04/24 07:15 02/04/24 07:28
Intake and Output
02/03/24 02/04/24 02/05/24
06:59 06:59 06:59
Intake Total 1320 / 1320 720 / 720
Balance 1320 / 1320 720 / 720
SaO2: 96
Physical Exam
General: Respiratory Distress (Negative), Comfortable, Sweats (Negative) and Good Appetite
HEENT: Normocephalic and Anicteric
Cardiovascular: Regular Rhythm, Murmur (Negative) and Peripheral Edema (Negative)
Respiratory: Clear (Right basilar pleural rub), Wheeze (Expiratory), Crackles (Negative), Rhonchi (Bilaterally in lower extremities) and Non-Labored Respirations
GI: Soft, Non Distended, Non Tender and Normal Bowel Sounds
Neurology: Awake, Alert and Tremors (Negative)
Skin: Warm, Dry, Cyanosis (n), Jaundice (n) and Rash
Labs/Micro/Reports
Lab Data
02/04/24 05:32
02/04/24 05:32
Microbiology
01/31/24 16:16 Blood/Venous Blood Culture - Preliminary
No Growth in 72 hours- Final report to follow
01/31/24 13:55 Blood/Venous Blood Culture - Preliminary
No Growth in 72 hours- Final report to follow
--- NOTE | 2024-02-04 10:15 | PN.CDI ---
CDI
- -
CDI:
Physician Documentation Request
Admit Date: 01/31/24 19:15
Dear Doctor Hollie,
Please review the following and provide your response in the progress notes.
Clinical Indicators:
Pt admitted with persistent Bronchitis /Lactic Acidosis
Progress note 02/02, ' Persistent bronchitis cystic lung disease from underlying Sjogren's Syndrome...continue Doxycycline
continue IV steroids (add H2 cyn while on steroids), dose decreased, will plan to change advisor to oral tomorrow continue nebs scheduled and prn continue Symbicort continue mucolytics, anti-tussives, IS, Acapella...'
Clarify which of the following accurately represents the acuity of the ( Bronchitis ).
Acute on Chronic
Acute
Other
Use of terms such as suspected, likely, concern for, or probable (associated with a specific diagnosis that is being evaluated, monitored, or treated as if it exists) are acceptable and can be coded in the inpatient setting, when documented at the
time of discharge.
Thank you,
Emily Cisse RN
CDI Specialist
[place] [facility]
Please use your independent medical judgment in providing your response.
[2024-02-04] MEDS: TESSALON PERLES 200 MG PO ×2 (10:22→20:11)
[2024-02-04] MEDS: COZAAR 50 MG PO ×2 (10:22→20:12)
[2024-02-04] MEDS: DELTASONE 40 MG PO (10:23)
[2024-02-04] MEDS: VIBRAMYCIN 100 MG PO ×2 (10:23→20:12)
[2024-02-04] MEDS: MUCINEX 1200 MG PO ×2 (10:23→20:11)
[2024-02-04] MEDS: TYLENOL 1000 MG PO ×2 (10:23→20:12)
--- NOTE | 2024-02-04 11:12 | CM ---
CM reviewed pt with Dr Browne- not cleared for dc due to worsening respiratory status
CM confirmed with [employer] that nebulizer was delivered to home yesterday
CM will remains available for dc planning
Discharge Disposition- home with new nebulizer/[employer], follow for additional needs
[2024-02-04] MEDS: DECADRON 4 MG IV ×2 (12:15→20:13)
--- NOTE | 2024-02-04 14:05 | W.PN.HOSP.TC ---
Addendum entered and electronically signed by Keegan Browne MD 02/04/24 14:59:
Nursing noted what appears to be a 14 beat run of V-Tach. Pt goes to Dr. Doe, will consult
Original Note:
Today's Communication/Plan
-
resume IV steroids
Assessment / Plan
Assessment / Plan
Assessment:
Persistent bronchitis
cystic lung disease from underlying Sjogren's Syndrome
- labeled as asthmatic in ER but no history of asthma
- CXR: Mild subsegmental atelectasis in the lung bases. Known bilateral pulmonary cysts are better appreciated on the prior chest CT. No focal consolidation, pleural effusion, or pneumothorax. The cardiomediastinal silhouette is normal. Chronic
degenerative changes of the spine..
- CT 01/26: Several small bilateral scattered pulmonary airspace/cystic structures are again seen bilaterally likely corresponding with the patient's history of Sjogren's syndrome. There is some bibasilar subsegmental atelectasis and/or scarring.
There is no significant hilar, mediastinal or axillary lymphadenopathy. No pleural or pericardial effusion is seen.
- COVID/Flu neg
- continue Doxycycline
- dose of IV steroids had been tapered, pt was not noted to have worsened and thus was transitioned to oral Prednisone today. On examination she is much more congested and is not tolerating decreased dose. Will resume Decadron 4 mg IV q8h
- continue nebs scheduled and prn
- continue Symbicort
- continue mucolytics, anti-tussives, IS, Acapella
- Pulmonary consulted, discussed with Dr. Nation, his office will arrange for DME equipment recommended by Pulm
Leukocytosis better
8.8-->14.5-->15.7-->9.0
Chest pressure
- likely related to above process
- EKG sinus rhythm, LVH
- trop 0.023
- continue tele
Lactic acidosis
- improved with IVF
Sjogren's Syndrome
- continue cevimeline
Essential Hypertension
- continue losartan
Dyslipidemia
- continue atorvastatin
Hypothyroidism
- continue levothyroxine
prior hx of Pulmonary Embolism
Left carotid artery stenosis
Hx Colon Cancer s/p Surgery and Chemo
DVT ppx: Lovenox
Code: Full
Anticipated Discharge: 24 - 48 hours
Subjective/Interval History
-
Date of Service: February 04, 2024
Feels more congested today, freq coughing spasms during time in room
Objective Data
-
Labs:
Laboratory Results
02/04/24
05:32
WBC 9.0
Hgb 9.8 L
Hct 28.8 L
Plt Count 178
Sodium 135
Potassium 4.8
Chloride 111 H
Carbon Dioxide 23
BUN 21 H
Creatinine 0.7
Glucose 96
Calcium 9.4
Vital Signs:
Vital Signs
Temp Pulse Resp BP Pulse Ox
97.9 F 75 16 143/78 98
02/04/24 11:05 02/04/24 14:00 02/04/24 14:00 02/04/24 11:05 02/04/24 14:00
I&O
02/03/24 02/04/24 02/05/24
06:59 06:59 06:59
Intake Total 1320 / 1320 720 / 720
Balance 1320 / 1320 720 / 720
Review of Systems
-
History Source: Patient and Coordinated Provider
Constitutional: Denies Fever
EENT: Reports No Symptoms Reported
Respiratory: Reports Trouble Breathing (significantly more congested since steroid dose decreased)
Cardiac: Reports No Symptoms
Genitourinary: Reports No Symptoms
Physical Exam
-
General: Well Developed, Well Nourished and No Apparent Distress
HEENT: Normocephalic, Atraumatic and Moist Mucous Membranes
Respiratory: Wheezes (holoexpiratory wheeze with coughing spasms on forced expiration)
Cardiac: Regular Rhythm and S1/S2
GI: Soft, Nontender and Nondistended
Musculoskeletal: No Clubbing, No Cyanosis and No Edema
Skin: Warm and Dry
Neuro: Awake, Alert and Oriented
--- NOTE | 2024-02-04 15:06 | PTCARENOTE ---
14 beats of Vtach noted on tele. Dr. Browne made aware. Cardiology consulted. Patient was asymptomatic.
--- NOTE | 2024-02-04 16:24 | CON.CAR ---
Addendum entered and electronically signed by Beatriz Doe MD 02/04/24 17:24:
I saw and examined the patient.
The UNIT EDUCATOR's note was reviewed and I agree with the note.
Comment: She is a 78 yo with prior PE, Sjogren's, HTN and HLD p/w chronic dyspnea and cough. SHe is being treated and evaluated by pulmonary and medicine. We are asked to comment on NSVT. She is asx. She has no cp. She had a recent lvef on echo. She
was started on BB in November but seems to have fallen off med list and she isn't sure why. On exam, she is tachycardic but regular, bibasilar fine rales. She has no le edema.
Tele with NSVT. Will start Metoprolol and see if can tolerate. This will also help with her elevated BP.
Outpatient stress test will be planned.
TTE 12/02/23: Normal biventricular size and systolic function without regional wall motion
abnormality. Estimated LVEF 60-65%.
Mild concentric left ventricular hypertrophy.
Mild/moderate mitral regurgitation.
Trace aortic regurgitation.
Compared to 08/28/23: MR looks mild/moderate compared to mild on prior.
Original Note:
Consultation
Consultation Request
Date/Time Consultation Requested: 02/04/24 15:00
Date/Time Consultation Performed: 02/04/24 16:00
Requesting Provider: Dr. Browne
Performing Provider: NORBERT Pratt for Dr. oDe
Reason for Consultation: NSVT
Medical History
-
Chief Complaint: Cough
History of Present Illness:
Rosey Malcolm is a 78 year old female (known to Dr. Doe, her primary senior financial) with prior PE, Sjogren's syndrome, HTN, HLD, colon cancer ([facility], 2006), carotid artery stenosis, and hypothyroidism, who presented to the ER with a chief
complaint of cough. She endorses associated shortness of breath that was worse with activity. She then had a low-grade temp. Her lactic acid was elevated. She was admitted for persistent bronchitis. Her D-dimer was elevated and a CT of the chest
did not show PE. COVID-negative. Influenza negative. She was started on intravenous steroids and doxycycline. Cardiology was consulted after NSVT on telemetry. It was approximately 14 beats. She was asymptomatic.
Past Medical History
Past Medical History: Cancer (Colon), HTN, Hypercholesterolemia and Other (Carotid artery stenosis, Sjogren's, prior PE)
Past Surgical History: Bowel Resection
Social History
Tobacco: Non-Smoker
Drug: None
Personal:
Living: With Family
Employment: Retired
Family History
Family History: CAD (in father.)
Allergies / Home Medications
Allergy/AdvReac Type Severity Reaction Status Date / Time
hydroxychloroquine Allergy Rash Verified 01/31/24 13:35
[From Plaquenil]
�Medication �Instructions �Recorded �Confirmed �Type
losartan 100 mg tablet (Cozaar) 50 mg PO BID Blood Pressure 081501/31/24 History
atorvastatin 10 mg tablet 10 mg PO QPM High Cholesterol 08/27/23 01/31/24 History
biotin 1 tab PO QPM Supplement 08/27/23 01/31/24 History
cevimeline 30 mg capsule 30 mg PO BID xerostomia 08/27/23 01/31/24 History
cholecalciferol (vitamin D3) 25 25 mcg PO QPM Supplement 08/27/23 01/31/24 History
mcg (1,000 unit) tablet (Vitamin
D3)
levothyroxine 75 mcg tablet 75 mcg PO DAILY AT 0700 Thyroid 11/29/23 01/31/24 History
acetaminophen 500 mg tablet 1,000 mg PO BID 01/31/24 01/31/24 History
albuterol sulfate 90 mcg/actuation 2 puff inhalation R Q4 PRN 01/31/24 01/31/24 History
aerosol inhaler sob/wheezing
Review of Systems
-
History Source: Patient
All other systems: Negative unless noted
Respiratory: Cough
Cardiac: No Symptoms
Physical Exam
Vital Signs
Temp Pulse Resp BP Pulse Ox
98.1 F 81 18 160/76 97
02/04/24 15:01 02/04/24 15:01 02/04/24 15:01 02/04/24 15:01 02/04/24 15:01
Lab Results
02/04/24 05:32
02/04/24 05:32
Troponin I 0.023 ng/ml 02/02/24 10:02
Physical Exam
General: Well Developed, Well Nourished and No Apparent Distress
HEENT: Normocephalic, Anicteric and Moist Mucous Membranes
Respiratory: Clear and Non Labored Respirations
Cardiac: S1/S2 and Regular Rhythm
Breast: Deferred by me
GI: Soft, Non Tender, Non Distended and Normal Bowel Sounds
Rectal: Deferred by Provider
Genito-urinary: No Costovertebral Tender
Musculoskeletal: No Clubbing and No Cyanosis
Skin: Warm and Dry
Neuro: AO x 3
Hematologic/Lymphatic: No Lymphadenopathy
Psych: Calm
Impression / Plan
-
NSVT
-Asymptomatic
-Resume beta cyn from prior admission, metoprolol succinate 25mg
Persistent bronchitis, per primary and pulmonary, with underlying cystic lung disease due to Sjogren's
HTN, on Losartan, mild cLVH on TTE
HLD, on atorvastatin
Mild/moderate mitral regurgitation
Right carotid artery stenosis, < 50%, outpatient surveillance
Sjogren's syndrome
Prior PE, in the setting of COVID-19
Prior colon cancer S/P resection & chemotherapy
Data Reviewed
-
EKG: Report Reviewed by me (Sinus rhythm with first degree AV block, LVH, rate 100)
Radiology: Report Reviewed by me (CXR: No consolidation. )
Medical Tests (Nuc Med, Echo etc): Report Reviewed by me (TTE as above)
Labs: Labs Reviewed by me
Old Records: Reviewed
[2024-02-04] MEDS: LOVENOX 40 MG SC (16:58)
[2024-02-04] MEDS: LIPITOR 10 MG PO (16:58)
[2024-02-04] MEDS: TOPROL XL 25 MG PO (17:33)
[2024-02-05] VITALS (8 sets, daily range): BP systolic 126–185; BP diastolic 69–85; PULSE 104; O2SAT 98
[2024-02-05] MEDS: MELATONIN 5 MG PO (00:37)
[2024-02-05] MEDS: DECADRON 4 MG IV ×3 (04:28→21:01)
[2024-02-05] MEDS: SYNTHROID 75 MCG PO (04:31)
[2024-02-05 06:02] LABS: Hematocrit 29.1 % (37.0-47.0); Hemoglobin 9.8 g/dL (12.0-16.0); Mean Corp Hgb Conc. 33.7 g/dL (33.0-37.0); Mean Corpuscular Hgb 32.3 pg (27.0-31.0); Mean Platelet Volume 10.8 fL (7.4-10.4); Platelet Count 180 10^3/uL (130-400); Red Blood Cell Count 3.03 10^6/uL (4.20-5.40); Red Cell Dist. Width 13.3 % (11.5-14.5); White Blood Cell Count 6.8 10^3/uL (4.8-10.8)
[2024-02-05 06:24] LABS: Blood Urea Nitrogen 23 mg/dl (7-17); Calcium 9.6 mg/dl (8.4-10.2); Carbon Dioxide 23 mmol/L (22-30); Chloride 105 mmol/L (98-107); Estimated Creatinine Clearance 50 ml/min; Glucose 110 mg/dl (70-99); Sodium 135 mmol/L (135-145); eGFR > 60.00
[2024-02-05] MEDS: DUONEB 3 ML INH ×3 (07:44→19:38)
[2024-02-05] MEDS: SYMBICORT 160/4.5 MCG INHALER 2 PUFF INH ×2 (07:47→19:38)
--- NOTE | 2024-02-05 08:30 | W.PN.CD ---
Today's Communication / Plan
-
continue current medication
I will sign off please call with questions
Impression / Plan
-
NSVT
-Asymptomatic
-continue metoprolol succinate 25mg
-If she were to start wheezing, then would transition metoprolol to cardizem 120mg daily
Persistent bronchitis, per primary and pulmonary, with underlying cystic lung disease due to Sjogren's
HTN, on Losartan, mild cLVH on TTE
-added bb with some improvement, monitor over time
HLD, on atorvastatin
Mild/moderate mitral regurgitation
Right carotid artery stenosis, < 50%, outpatient surveillance
Sjogren's syndrome
Prior PE, in the setting of COVID-19
Prior colon cancer S/P resection & chemotherapy
Physical Exam
Vital Signs/Labs
Vital Signs
Temp Pulse Resp BP Pulse Ox
97.6 F 68 16 159/80 96
02/05/24 03:47 02/05/24 07:47 02/05/24 07:47 02/05/24 03:47 02/05/24 07:47
02/05/24 05:39
02/05/24 05:39
Magnesium 1.9 mg/dl (1.6-2.3) 02/02/24 06:52
LAB Results
02/02/24
10:02
Troponin I 0.023
Physical Exam
Constitutional: No acute distress
Cardiovascular: Rhythm & rate is regular, Pedal edema is absent, JVD pressure is normal, Systolic murmur absent and Diastolic murmur absent
Respiratory: Respiratory effort normal, Wheeze Absent, Crackles Absent and Crackles Present (bibasilar)
Neuro/Psych: AO x 3
Data Reviewed
-
Date of Service: February 05, 2024
[2024-02-05] MEDS: COZAAR 50 MG PO ×2 (08:35→21:01)
[2024-02-05] MEDS: TESSALON PERLES 200 MG PO (08:36)
[2024-02-05] MEDS: VIBRAMYCIN 100 MG PO ×2 (08:36→21:00)
[2024-02-05] MEDS: MUCINEX 1200 MG PO ×2 (08:36→21:01)
[2024-02-05] MEDS: TYLENOL 1000 MG PO ×2 (08:36→21:00)
--- NOTE | 2024-02-05 08:58 | W.PN.PUL.V3 ---
Today's Communication / Plan
-
Convert Decadron to prednisone
Increase activity
Antitussives
Finite course of antibiotics
Outpatient pulmonary follow-up
Assessment
-
Assessment: 78-year-old female with a past medical history of Sjogren's syndrome, history of COVID-19, history of PE, hypertension, history of colon cancer, hypothyroidism, GERD and carotid artery stenosis who presents with cough, shortness of
breath and fevers. Patient recently in the ER on 01/27/2024 with coughing spells, worsening nasal stuffiness and phlegm production with yellow sputum. D-dimer was checked and it was elevated at [address] of the chest was performed showing no
evidence of a PE, as well as bilateral cysts, bronchial wall thickening, and bibasilar linear scarring/atelectasis (L >R). There is a focal area of bronchiectasis in the posteromedial LLL. In the ER she was saturating 96% on room air and afebrile
to 99.7 �F. Labs showed lactic acidosis to 2.4, hyponatremia 134, normal WBC at 9.9, Hb 11.2 and COVID antigen negative. She was started on DuoNebs and Decadron and admitted to the hospitalist service. Pulmonary now consulted for additional
management/recommendations.
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
resection and chemotherapy, hypothyroidism, carotid artery stenosis, hypercholesterolemia
Impression:
#Acute cough - appears to be acute on chronic and likely related to mucoid impaction seen in her lower lobes with focal bronchiectasis seen in her postero-medial LLL
#DPLD with cystic lung disease - likely related to her Hx of Sjogren's disease
#Anemia
#Sjogren's disease
#Hx of covid-19 with provoked PE
#Hypothyroidism
Plan:.
Pulmonary status appears to have improved-less cough, slept well
Wean oxygen as tolerated
Home nebulizer has been arranged-patient reports already delivered
Continue Symbicort
Mucolytic's continue
Tessalon as needed
Aspiration precautions.
Continue steroids-convert Decadron to prednisone 40 mg daily-start 02/04/24-when employee slow taper-40 mg daily for 4-5 days, then 30 mg daily for 4 to 5 days and then 20 mg etc., etc.
Follow radiographically
DVT prophylaxis-on Lovenox
If discharged consider antitussives-Dr. Nation told her to take Robitussin DM or Mucinex DM at nighttime, Robitussin during the daytime and consideration towards Phenergan with codeine at time of discharge
Reviewed with Dr. Browne
Outpatient follow-up with Dr. Hunter.
Data:
CXR 01-31-2024: No acute cardiopulmonary process.
CTA Chest 01-27-2024:
No evidence of central pulmonary embolism.
Parenchymal findings again seen correlating with the patient's known history of Sjogren's syndrome.
Outpatient [facility] data:
PFT:
������ PFT 01/09/24: FVC 2.42/106%, FEV1 1.98/117%, ratio 82. TLC 3.80/87%, DLCO 15.39/85%. This is normal. DLCO has improved.
6 MWT:
������ 09/09/2023- 6 MWT- resting room air sat 98% with heart rate 78, after 450 feet pulse ox 99% with heart rate 96. No subjective shortness of breath.
RADIOGRAPHIC STUDIES:
������ CXR 11/29/23: no acute findings
�������CT chest 11/29/23: negative PE. Bilateral cystic changes, chronic
�������Doppler 08/28/23: negative bilateral DVT
�������CT chest 08/27/23: scattered small bilateral pulmonary emboli. Normal RV/LV ratio. No adenopathy. There are scattered cystic lung disease.
�������CXR 10/24/23: negative
�������CT chest 09/09/18: negative for PE. Narrowing of right brachiocephalic vein chronic. Multiple scattered pulmonary cystic lesionsand basilar atelectasis. . Compared to prior studies, overall cystic disease is stable
�������.
CARDIAC STUDIES:
������ Echo 12/02/23: Normal biventricular function, moderate MR, right heart pressures could not be determined
�������Echo 08/28/23: Normal biventrricular function, unable to measure pressure.
LABS:
������ 12/28/23: Normal anticardiolipin antibody
�������12/02/23: White count 20.6, hemoglobin 11, normal serum bicarbonate, creatinine, calcium
�������09/28/23: Normal IgG, IgA, IgM, normal double-stranded DNA
�������08/29/23: Hemoglobin 11.1, d-dimer greater than 20, normal serum bicarbonate, creatinine, calcium, troponin. ProBNP 905
�������08/28/23: Positive Covid
�������04/06/22: Positive rheumatoid factor (512), positive NAOMY titer 1:640, speckled, positive double-stranded DNA IgG antibody 92.
Subjective Data
-
Date of Service:
Date of Service: February 05, 2024
Chief Complaint: Pulmonary Follow Up and Dyspnea Follow Up
Subjective:
Feels better, slept better-took melatonin last evening, cough overall decreased, no complaints of worsening shortness of breath, increased chest congestion, or abdominal pain
Review of Systems
General: Other (Per HPI)
Objective Data
Data Reviewed
Vital Signs / I&O:
Vital Signs
Temp Pulse Resp BP Pulse Ox
97.4 F 68 16 185/77 95
02/05/24 08:10 02/05/24 08:10 02/05/24 08:10 02/05/24 08:10 02/05/24 08:10
Intake and Output
02/04/24 02/05/24 02/06/24
06:59 06:59 06:59
Intake Total 720 / 720 1020 / 1020
Balance 720 / 720 1020 / 1020
SaO2: 95
Physical Exam
General: Respiratory Distress (Negative), Comfortable, Sweats (Negative) and Good Appetite
HEENT: Normocephalic and Anicteric
Cardiovascular: Regular Rhythm, Murmur (Negative) and Peripheral Edema (Negative)
Respiratory: Clear (Right basilar pleural rub), Wheeze (Expiratory), Crackles (Negative), Rhonchi (Bilaterally in lower extremities) and Non-Labored Respirations
GI: Soft, Non Distended, Non Tender and Normal Bowel Sounds
Neurology: Awake, Alert and Tremors (Negative)
Skin: Warm, Dry, Cyanosis (n), Jaundice (n) and Rash
Labs/Micro/Reports
Lab Data
02/05/24 05:39
02/05/24 05:39
Microbiology
01/31/24 16:16 Blood/Venous Blood Culture - Preliminary
No Growth in 4 days- Final report to follow
01/31/24 13:55 Blood/Venous Blood Culture - Preliminary
No Growth in 4 days- Final report to follow
--- NOTE | 2024-02-05 16:18 | W.PN.HOSP.TC ---
Today's Communication/Plan
-
continue Decadron for now, cautious tapering of steroid dose
Assessment / Plan
Assessment / Plan
Assessment:
Persistent bronchitis
cystic lung disease from underlying Sjogren's Syndrome
- labeled as asthmatic in ER but no history of asthma
- CXR: Mild subsegmental atelectasis in the lung bases. Known bilateral pulmonary cysts are better appreciated on the prior chest CT. No focal consolidation, pleural effusion, or pneumothorax. The cardiomediastinal silhouette is normal. Chronic
degenerative changes of the spine..
- CT 01/26: Several small bilateral scattered pulmonary airspace/cystic structures are again seen bilaterally likely corresponding with the patient's history of Sjogren's syndrome. There is some bibasilar subsegmental atelectasis and/or scarring.
There is no significant hilar, mediastinal or axillary lymphadenopathy. No pleural or pericardial effusion is seen.
- COVID/Flu neg
- continue Doxycycline
- dose of IV steroids had been tapered, pt was not noted to have worsened and thus was transitioned to oral Prednisone 02/02. On examination on 02/03 she was much more congested and was not tolerating decreased dose. resumed Decadron 4 mg IV q8h,
with dramatic improvement. Will continue this dose for now and reevaluate daily
- continue nebs scheduled and prn
- continue Symbicort
- continue mucolytics, anti-tussives, IS, Acapella
- Pulmonary consulted, discussed with Dr. Nation, his office will arrange for DME equipment recommended by Pulm
Acute on chronic (from underlying Sjogren's Syndrome cystic lung disease) bronchitis is slowly improving
Clarify which of the following accurately represents the acuity of the ( Bronchitis ).
Acute on Chronic
Leukocytosis better
8.8-->14.5-->15.7-->9.0-->6.8
Chest pressure
- likely related to above process
- EKG sinus rhythm, LVH
- trop 0.023
- continue tele
Lactic acidosis
- improved with IVF
Sjogren's Syndrome
- continue cevimeline
Essential Hypertension
- continue losartan
Dyslipidemia
- continue atorvastatin
Hypothyroidism
- continue levothyroxine
prior hx of Pulmonary Embolism
Left carotid artery stenosis
Hx Colon Cancer s/p Surgery and Chemo
DVT ppx: Lovenox
Code: Full
Anticipated Discharge: > 48 hours
Subjective/Interval History
-
Date of Service: February 05, 2024
Feels remarkably better since Decadron at 4 mg IV q8h instituted
Objective Data
-
Labs:
Laboratory Results
02/05/24
05:39
WBC 6.8
Hgb 9.8 L
Hct 29.1 L
Plt Count 180
Sodium 135
Potassium 5.0
Chloride 105
Carbon Dioxide 23
BUN 23 H
Creatinine 0.7
Glucose 110 H
Calcium 9.6
Vital Signs:
Vital Signs
Temp Pulse Resp BP Pulse Ox
97 F 93 18 151/77 98
02/05/24 15:00 02/05/24 15:00 02/05/24 15:00 02/05/24 15:00 02/05/24 15:00
I&O
02/04/24 02/05/24 02/06/24
06:59 06:59 06:59
Intake Total 720 / 720 1020 / 1020
Balance 720 / 720 1020 / 1020
Review of Systems
-
History Source: Patient and Coordinated Provider
Constitutional: Denies Fever
EENT: Reports No Symptoms Reported
Respiratory: Reports Trouble Breathing (much improved)
Cardiac: Reports No Symptoms
Genitourinary: Reports No Symptoms
Physical Exam
-
General: Well Developed, Well Nourished and No Apparent Distress
HEENT: Normocephalic, Atraumatic and Moist Mucous Membranes
Respiratory: Wheezes (much clearer, coughing spasms on forced expiration resolved)
Cardiac: Regular Rhythm and S1/S2
GI: Soft, Nontender and Nondistended
Musculoskeletal: No Clubbing, No Cyanosis and No Edema
Skin: Warm and Dry
Neuro: Awake, Alert and Oriented
[2024-02-05] MEDS: TOPROL XL 25 MG PO (17:35)
[2024-02-05] MEDS: LIPITOR 10 MG PO (17:35)
[2024-02-05] MEDS: LOVENOX 40 MG SC (17:36)
[2024-02-06] VITALS (7 sets, daily range): BP systolic 132–179; BP diastolic 59–76
[2024-02-06] MEDS: DECADRON 4 MG IV ×2 (04:03→22:29)
[2024-02-06] MEDS: SYNTHROID 75 MCG PO (04:04)
[2024-02-06] MEDS: DUONEB 3 ML INH ×3 (07:22→19:41)
[2024-02-06] MEDS: SYMBICORT 160/4.5 MCG INHALER 2 PUFF INH ×2 (07:22→19:41)
[2024-02-06] MEDS: VIBRAMYCIN 100 MG PO ×2 (08:07→22:28)
[2024-02-06] MEDS: MUCINEX 1200 MG PO ×2 (08:07→22:29)
[2024-02-06] MEDS: COZAAR 50 MG PO ×2 (08:08→22:29)
[2024-02-06] MEDS: TYLENOL 1000 MG PO ×2 (08:09→22:28)
[2024-02-06 08:16] LABS: % Basophils 0.3 % (0-2); % Lymphocytes 14.1 % (20.5-51.1); % Monocytes 5.3 % (1.7-9.3); % Neutrophils 76.3 % (42.2-75.2); Absolute Immature Granulocytes 0.3 10^3/uL (0-0.05); Absolute Lymphocytes 1.1 10^3/uL (1.2-3.4); Absolute Monocytes 0.4 10^3/uL (0.1-0.6); Absolute Neutrophils 5.9 10^3/uL (1.4-6.5); Hematocrit 31.7 % (37.0-47.0); Hemoglobin 10.7 g/dL (12.0-16.0); Mean Corp Hgb Conc. 33.8 g/dL (33.0-37.0); Mean Corpuscular Hgb 32.5 pg (27.0-31.0); Mean Corpuscular Volume 96.4 fL (81.0-99.0); Mean Platelet Volume 10.8 fL (7.4-10.4); Nucleated Red Blood Cells % 0 %; Platelet Count 184 10^3/uL (130-400); Red Blood Cell Count 3.29 10^6/uL (4.20-5.40); Red Cell Dist. Width 13.5 % (11.5-14.5); White Blood Cell Count 7.7 10^3/uL (4.8-10.8)
[2024-02-06 08:40] LABS: Blood Urea Nitrogen 24 mg/dl (7-17); Calcium 9.8 mg/dl (8.4-10.2); Carbon Dioxide 23 mmol/L (22-30); Chloride 104 mmol/L (98-107); Estimated Creatinine Clearance 50 ml/min; Glucose 105 mg/dl (70-99); Magnesium 1.8 mg/dl (1.6-2.3); Potassium 4.5 mmol/L (3.5-5.1); Sodium 136 mmol/L (135-145); eGFR > 60.00
--- NOTE | 2024-02-06 09:55 | W.PN.PUL.V3 ---
Today's Communication / Plan
-
Decrease Decadron
Convert to oral prednisone tomorrow and possibly discharge
Continue nebulizers
Doxycycline continues-finish finite course
Assessment
-
Assessment: 78-year-old female with a past medical history of Sjogren's syndrome, history of COVID-19, history of PE, hypertension, history of colon cancer, hypothyroidism, GERD and carotid artery stenosis who presents with cough, shortness of
breath and fevers. Patient recently in the ER on 01/27/2024 with coughing spells, worsening nasal stuffiness and phlegm production with yellow sputum. D-dimer was checked and it was elevated at [address] of the chest was performed showing no
evidence of a PE, as well as bilateral cysts, bronchial wall thickening, and bibasilar linear scarring/atelectasis (L >R). There is a focal area of bronchiectasis in the posteromedial LLL. In the ER she was saturating 96% on room air and afebrile
to 99.7 �F. Labs showed lactic acidosis to 2.4, hyponatremia 134, normal WBC at 9.9, Hb 11.2 and COVID antigen negative. She was started on DuoNebs and Decadron and admitted to the hospitalist service. Pulmonary now consulted for additional
management/recommendations.
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
resection and chemotherapy, hypothyroidism, carotid artery stenosis, hypercholesterolemia
Impression:
#Acute cough - appears to be acute on chronic and likely related to mucoid impaction seen in her lower lobes with focal bronchiectasis seen in her postero-medial LLL
#DPLD with cystic lung disease - likely related to her Hx of Sjogren's disease
#Anemia
#Sjogren's disease
#Hx of covid-19 with provoked PE
#Hypothyroidism
Plan:.
Respiratory status slowly improving-overall less cough and less wheezing
Wean supplemental oxygen
Home nebulizer has been arranged-patient reports already delivered
Continue Symbicort
Mucolytic's continue
Tessalon as needed
Aspiration precautions.
Can decrease Decadron to every 12 hours and convert to prednisone 40 mg daily tomorrow-start 02/07/24-and employ slow taper-40 mg daily for 4-5 days, then 30 mg daily for 4 to 5 days and then 20 mg etc., etc.
Follow radiographically
Cultures reviewed
Doxycycline continues-finish finite course
DVT prophylaxis-on Lovenox
If discharged consider antitussives-Dr. Nation told her to take Robitussin DM or Mucinex DM at nighttime, Robitussin during the daytime and consideration towards Phenergan with codeine at time of discharge
Outpatient follow-up with Dr. Hunter.
Data:
CXR 01-31-2024: No acute cardiopulmonary process.
CTA Chest 01-27-2024:
No evidence of central pulmonary embolism.
Parenchymal findings again seen correlating with the patient's known history of Sjogren's syndrome.
Outpatient [facility] data:
PFT:
������ PFT 01/09/24: FVC 2.42/106%, FEV1 1.98/117%, ratio 82. TLC 3.80/87%, DLCO 15.39/85%. This is normal. DLCO has improved.
6 MWT:
������ 09/09/2023- 6 MWT- resting room air sat 98% with heart rate 78, after 450 feet pulse ox 99% with heart rate 96. No subjective shortness of breath.
RADIOGRAPHIC STUDIES:
������ CXR 11/29/23: no acute findings
�������CT chest 11/29/23: negative PE. Bilateral cystic changes, chronic
�������Doppler 08/28/23: negative bilateral DVT
�������CT chest 08/27/23: scattered small bilateral pulmonary emboli. Normal RV/LV ratio. No adenopathy. There are scattered cystic lung disease.
�������CXR 08/27/23: negative
�������CT chest 09/09/18: negative for PE. Narrowing of right brachiocephalic vein chronic. Multiple scattered pulmonary cystic lesionsand basilar atelectasis. . Compared to prior studies, overall cystic disease is stable
�������.
CARDIAC STUDIES:
������ Echo 12/02/23: Normal biventricular function, moderate MR, right heart pressures could not be determined
�������Echo 08/28/23: Normal biventrricular function, unable to measure pressure.
LABS:
������ 12/28/23: Normal anticardiolipin antibody
�������12/02/23: White count 20.6, hemoglobin 11, normal serum bicarbonate, creatinine, calcium
�������09/28/23: Normal IgG, IgA, IgM, normal double-stranded DNA
�������08/29/23: Hemoglobin 11.1, d-dimer greater than 20, normal serum bicarbonate, creatinine, calcium, troponin. ProBNP 905
�������08/28/23: Positive Covid
�������04/06/22: Positive rheumatoid factor (512), positive NAOMY titer 1:640, speckled, positive double-stranded DNA IgG antibody 92.
Subjective Data
-
Date of Service:
Date of Service: February 06, 2024
Chief Complaint: Pulmonary Follow Up and Dyspnea Follow Up
Subjective:
Overall feels she is not ready for discharge yet, has persistent cough overall improved, did not sleep well, no chest pain or abdominal pain
Review of Systems
General: Other (Per HPI)
Objective Data
Data Reviewed
Vital Signs / I&O:
Vital Signs
Temp Pulse Resp BP Pulse Ox
97.7 F 78 20 174/74 95
02/06/24 07:30 02/06/24 07:30 02/06/24 07:30 02/06/24 07:30 02/06/24 07:30
Intake and Output
02/05/24 02/06/24 02/07/24
06:59 06:59 06:59
Intake Total 1020 / 1020 1440 / 1440
Balance 1020 / 1020 1440 / 1440
SaO2: 95
Physical Exam
General: Respiratory Distress (Negative), Comfortable, Sweats (Negative) and Good Appetite
HEENT: Normocephalic and Anicteric
Cardiovascular: Regular Rhythm, Murmur (Negative) and Peripheral Edema (Negative)
Respiratory: Wheeze (Few forced end expiratory-overall improving), Crackles (Negative), Rhonchi (Bilaterally in lower extremities) and Non-Labored Respirations
GI: Soft, Non Distended, Non Tender and Normal Bowel Sounds
Neurology: Awake, Alert and Tremors (Negative)
Skin: Warm, Dry, Cyanosis (n), Jaundice (n) and Rash
Labs/Micro/Reports
Lab Data
02/06/24 07:58
02/06/24 07:58
Microbiology
01/31/24 16:16 Blood/Venous Blood Culture - Final
No Growth - Final Report
01/31/24 13:55 Blood/Venous Blood Culture - Final
No Growth - Final Report
--- NOTE | 2024-02-06 12:09 | W.PN.HOSP.TC ---
Today's Communication/Plan
-
begin cautious tapering of steroids
Assessment / Plan
Assessment / Plan
Assessment:
Persistent bronchitis
cystic lung disease from underlying Sjogren's Syndrome
- labeled as asthmatic in ER but no history of asthma
- CXR: Mild subsegmental atelectasis in the lung bases. Known bilateral pulmonary cysts are better appreciated on the prior chest CT. No focal consolidation, pleural effusion, or pneumothorax. The cardiomediastinal silhouette is normal. Chronic
degenerative changes of the spine.
- CT 01/26: Several small bilateral scattered pulmonary airspace/cystic structures are again seen bilaterally likely corresponding with the patient's history of Sjogren's syndrome. There is some bibasilar subsegmental atelectasis and/or scarring.
There is no significant hilar, mediastinal or axillary lymphadenopathy. No pleural or pericardial effusion is seen.
- COVID/Flu neg
- continue Doxycycline
- dose of IV steroids had been tapered, pt was not noted to have worsened and thus was transitioned to oral Prednisone 02/02. On examination on 02/03 she was much more congested and was not tolerating decreased dose. resumed Decadron 4 mg IV q8h,
with dramatic improvement and as such Dr. Nation will cautiously reduce to 4 mg IVq12h, which is appropriate.
- continue nebs scheduled and prn
- continue Symbicort
- continue mucolytics, anti-tussives, IS, Acapella
- Pulmonary consulted, discussed with Dr. Nation, his office will arrange for DME equipment recommended by Pulm
Acute on chronic (from underlying Sjogren's Syndrome cystic lung disease) bronchitis is slowly improving
Clarify which of the following accurately represents the acuity of the ( Bronchitis ).
Acute on Chronic
Leukocytosis better
8.8-->14.5-->15.7-->9.0-->6.8-->7.7
Chest pressure
- likely related to above process
- EKG sinus rhythm, LVH
- trop 0.023
- continue tele
Lactic acidosis
- improved with IVF, resolved
Sjogren's Syndrome
- continue cevimeline
Essential Hypertension
- continue losartan
systolic BP somewhat high, possibly from steroids. Will follow may need uptitration
Dyslipidemia
- continue atorvastatin
Hypothyroidism
- continue levothyroxine
prior hx of Pulmonary Embolism
Left carotid artery stenosis
Hx Colon Cancer s/p Surgery and Chemo
DVT ppx: Lovenox
Code: Full
Anticipated Discharge: 24 - 48 hours
Subjective/Interval History
-
Date of Service: February 06, 2024
Breathing has improved
Objective Data
-
Labs:
Laboratory Results
02/06/24
07:58
WBC 7.7
Hgb 10.7 L
Hct 31.7 L
Plt Count 184
Sodium 136
Potassium 4.5
Chloride 104
Carbon Dioxide 23
BUN 24 H
Creatinine 0.7
Glucose 105 H
Calcium 9.8
Vital Signs:
Vital Signs
Temp Pulse Resp BP Pulse Ox
97.7 F 78 20 174/74 95
02/06/24 07:30 02/06/24 07:30 02/06/24 07:30 02/06/24 07:30 02/06/24 09:55
I&O
02/05/24 02/06/24 02/07/24
06:59 06:59 06:59
Intake Total 1020 / 1020 1440 / 1440
Balance 1020 / 1020 1440 / 1440
Review of Systems
-
History Source: Patient and Coordinated Provider
Constitutional: Denies Fever
EENT: Reports No Symptoms Reported
Respiratory: Reports Trouble Breathing (much improved)
Cardiac: Reports No Symptoms
Genitourinary: Reports No Symptoms
Physical Exam
-
General: Well Developed, Well Nourished and No Apparent Distress
HEENT: Normocephalic, Atraumatic and Moist Mucous Membranes
Respiratory: Wheezes (much clearer, coughing spasms on forced expiration resolved)
Cardiac: Regular Rhythm and S1/S2
GI: Soft, Nontender and Nondistended
Musculoskeletal: No Clubbing, No Cyanosis and No Edema
Skin: Warm and Dry
Neuro: Awake, Alert and Oriented
[2024-02-06] MEDS: LIPITOR 10 MG PO (17:17)
[2024-02-06] MEDS: LOVENOX 40 MG SC (17:17)
[2024-02-06] MEDS: TOPROL XL 25 MG PO ×2 (17:17→18:35)
--- NOTE | 2024-02-06 17:56 | W.PN.CD ---
Today's Communication / Plan
-
increase metoprolol succinate to 50mg qHS
Impression / Plan
-
NSVT: a few brief runs on tele
-Asymptomatic
-echo 11/2023: EF 60-65%, mild/moderate MR
-increase metoprolol succinate to 50mg qHS
-If she were to start wheezing, then would transition metoprolol to cardizem
Persistent bronchitis, per primary and pulmonary, with underlying cystic lung disease due to Sjogren's
HTN, on Losartan, mild cLVH on TTE
-added bb with some improvement, monitor over time
HLD, on atorvastatin
Mild/moderate mitral regurgitation
Right carotid artery stenosis, < 50%, outpatient surveillance
Sjogren's syndrome
Prior PE, in the setting of COVID-19
Prior colon cancer S/P resection & chemotherapy
Physical Exam
Vital Signs/Labs
Vital Signs
Temp Pulse Resp BP Pulse Ox
98.0 F 87 18 132/59 98
02/06/24 15:09 02/06/24 15:09 02/06/24 15:09 02/06/24 15:09 02/06/24 15:09
02/06/24 07:58
02/06/24 07:58
Magnesium 1.8 mg/dl (1.6-2.3) 02/06/24 07:58
Physical Exam
Constitutional: No acute distress and Comfortable
EENT: Moist mucous membranes
Cardiovascular: Rhythm & rate is regular, Pedal edema is absent, JVD pressure is normal and Systolic murmur absent
Respiratory: Respiratory effort normal and Lungs clear to auscul.
GI: Soft, Distention absent and Flat
Neuro/Psych: AO x 3
Data Reviewed
-
Date of Service: February 06, 2024
EKG: Other (SR, brief NSVT)
[2024-02-07] VITALS (7 sets, daily range): BP systolic 123–160; BP diastolic 58–83; PULSE 88; O2SAT 97
[2024-02-07] MEDS: SYNTHROID 75 MCG PO (05:35)
[2024-02-07] MEDS: DUONEB 3 ML INH ×3 (07:49→20:04)
[2024-02-07] MEDS: SYMBICORT 160/4.5 MCG INHALER 2 PUFF INH ×2 (07:49→20:03)
[2024-02-07] MEDS: DECADRON 4 MG IV (08:51)
[2024-02-07] MEDS: COZAAR 50 MG PO ×2 (08:51→20:50)
[2024-02-07] MEDS: VIBRAMYCIN 100 MG PO ×2 (08:51→20:51)
[2024-02-07] MEDS: MUCINEX 1200 MG PO ×2 (08:51→20:50)
[2024-02-07] MEDS: TYLENOL 1000 MG PO ×2 (08:51→20:50)
--- NOTE | 2024-02-07 09:11 | W.PN.HOSP.TC ---
Today's Communication/Plan
-
switch to PO steroids later today
DC IV steroids
follow pulm recs
finish Doxy this evening
await Cards input
hopefully DC in 24 hours
Assessment / Plan
Assessment / Plan
Assessment:
Persistent bronchitis
cystic lung disease from underlying Sjogren's Syndrome
Acute on chronic (from underlying Sjogren's Syndrome cystic lung disease)
- CXR: Mild subsegmental atelectasis in the lung bases. Known bilateral pulmonary cysts are better appreciated on the prior chest CT. No focal consolidation, pleural effusion, or pneumothorax. The cardiomediastinal silhouette is normal. Chronic
degenerative changes of the spine.
- CT 01/26: Several small bilateral scattered pulmonary airspace/cystic structures are again seen bilaterally likely corresponding with the patient's history of Sjogren's syndrome. There is some bibasilar subsegmental atelectasis and/or scarring.
There is no significant hilar, mediastinal or axillary lymphadenopathy. No pleural or pericardial effusion is seen.
- COVID/Flu neg
- continue Doxycycline, day 7/7
- continue IV steroids; transition to PO when cleared by pulmonary.
- continue nebs scheduled and prn
- continue Symbicort
- continue mucolytics, anti-tussives, IS, Acapella
- Pulmonary following
Leukocytosis
- steroid induced, improving
Chest pressure
- likely related to above process
- EKG sinus rhythm, LVH
- trop 0.023
- continue tele
Lactic acidosis
- improved with IVF, resolved
Sjogren's Syndrome
- continue cevimeline
Essential Hypertension
- continue losartan
- monitor BPs
Dyslipidemia
- continue atorvastatin
Hypothyroidism
- continue levothyroxine
prior hx of Pulmonary Embolism
Left carotid artery stenosis
Hx Colon Cancer s/p Surgery and Chemo
DVT ppx: Lovenox
Code: Full
Anticipated Discharge: Within 24 hours
Subjective/Interval History
-
Date of Service: February 07, 2024
reports wheezing improving, cough improving but not ready for DC today
denies chest pain or palps
Objective Data
-
Vital Signs:
Vital Signs
Temp Pulse Resp BP Pulse Ox
99.0 F 68 15 160/83 96
02/07/24 09:07 02/07/24 09:07 02/07/24 09:07 02/07/24 09:07 02/07/24 09:07
I&O
02/06/24 02/07/24 02/08/24
06:59 06:59 06:59
Intake Total 1440 / 1440 1260 / 1260
Balance 1440 / 1440 1260 / 1260
Physical Exam
-
General: No Apparent Distress
HEENT: Normocephalic and Atraumatic
Respiratory: Wheezes; Negative Rales or Rhonchi
Cardiac: Regular Rhythm and S1/S2
GI: Soft and Nontender
Neuro: AO x 3
Hematologic / Lymphatic: No Lymphadenopathy
Psych: Calm
Data Reviewed
-
Total Time Spent with Patient (in minutes): 42
Labs: Labs Reviewed by me
--- NOTE | 2024-02-07 09:48 | W.PN.PUL.V3 ---
Today's Communication / Plan
-
Wean oxygen
Increase activity
Continue nebulizers
Change steroids to prednisone 40 mg daily with slow taper
May be ready for discharge in the next 24-48 hours
Assessment
-
Assessment: 78-year-old female with a past medical history of Sjogren's syndrome, history of COVID-19, history of PE, hypertension, history of colon cancer, hypothyroidism, GERD and carotid artery stenosis who presents with cough, shortness of
breath and fevers. Patient recently in the ER on 01/27/2024 with coughing spells, worsening nasal stuffiness and phlegm production with yellow sputum. D-dimer was checked and it was elevated at [address] of the chest was performed showing no
evidence of a PE, as well as bilateral cysts, bronchial wall thickening, and bibasilar linear scarring/atelectasis (L >R). There is a focal area of bronchiectasis in the posteromedial LLL. In the ER she was saturating 96% on room air and afebrile
to 99.7 �F. Labs showed lactic acidosis to 2.4, hyponatremia 134, normal WBC at 9.9, Hb 11.2 and COVID antigen negative. She was started on DuoNebs and Decadron and admitted to the hospitalist service. Pulmonary now consulted for additional
management/recommendations.
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
resection and chemotherapy, hypothyroidism, carotid artery stenosis, hypercholesterolemia
Impression:
#Acute cough - appears to be acute on chronic and likely related to mucoid impaction seen in her lower lobes with focal bronchiectasis seen in her postero-medial LLL
#DPLD with cystic lung disease - likely related to her Hx of Sjogren's disease
#Anemia
#Sjogren's disease
#Hx of covid-19 with provoked PE
#Hypothyroidism
Plan:.
Respiratory status continues to slowly improve-overall less cough and less wheezing
Wean supplemental oxygen
Home nebulizer has been arranged-patient reports already delivered
Continue Symbicort
Mucolytic's continue
Tessalon as needed
Aspiration precautions.
Can decrease Decadron to every 12 hours and convert to prednisone 40 mg daily tomorrow-start 02/07/24-and employ slow taper-40 mg daily for 4-5 days, then 30 mg daily for 4 to 5 days and then 20 mg etc., etc.
Follow radiographically
Cultures reviewed
Doxycycline continues-finish finite course
DVT prophylaxis-on Lovenox
Reviewed with nursing as well as primary team
If discharged consider antitussives-Dr. Nation told her to take Robitussin DM or Mucinex DM at nighttime, Robitussin during the daytime and consideration towards Phenergan with codeine at time of discharge
Outpatient follow-up with Dr. Hunter.
Data:
CXR 01-31-2024: No acute cardiopulmonary process.
CTA Chest 01-27-2024:
No evidence of central pulmonary embolism.
Parenchymal findings again seen correlating with the patient's known history of Sjogren's syndrome.
Outpatient [facility] data:
PFT:
������ PFT 01/09/24: FVC 2.42/106%, FEV1 1.98/117%, ratio 82. TLC 3.80/87%, DLCO 15.39/85%. This is normal. DLCO has improved.
6 MWT:
������ 09/09/2023- 6 MWT- resting room air sat 98% with heart rate 78, after 450 feet pulse ox 99% with heart rate 96. No subjective shortness of breath.
RADIOGRAPHIC STUDIES:
������ CXR 11/29/23: no acute findings
�������CT chest 11/29/23: negative PE. Bilateral cystic changes, chronic
�������Doppler 08/28/23: negative bilateral DVT
�������CT chest 08/27/23: scattered small bilateral pulmonary emboli. Normal RV/LV ratio. No adenopathy. There are scattered cystic lung disease.
�������CXR 08/27/23: negative
�������CT chest 09/09/18: negative for PE. Narrowing of right brachiocephalic vein chronic. Multiple scattered pulmonary cystic lesionsand basilar atelectasis. . Compared to prior studies, overall cystic disease is stable
�������.
CARDIAC STUDIES:
������ Echo 12/02/23: Normal biventricular function, moderate MR, right heart pressures could not be determined
�������Echo 08/28/23: Normal biventrricular function, unable to measure pressure.
LABS:
������ 12/28/23: Normal anticardiolipin antibody
�������12/02/23: White count 20.6, hemoglobin 11, normal serum bicarbonate, creatinine, calcium
�������09/28/23: Normal IgG, IgA, IgM, normal double-stranded DNA
�������08/29/23: Hemoglobin 11.1, d-dimer greater than 20, normal serum bicarbonate, creatinine, calcium, troponin. ProBNP 905
�������08/28/23: Positive Covid
�������04/06/22: Positive rheumatoid factor (512), positive NAOMY titer 1:640, speckled, positive double-stranded DNA IgG antibody 92.
Subjective Data
-
Date of Service:
Date of Service: February 07, 2024
Chief Complaint: Pulmonary Follow Up and Dyspnea Follow Up
Subjective:
Overall feels better, less short of breath, still leery about discharge, less wheezy, cough overall improved, slept better, no chest pain or abdominal pain
Review of Systems
General: Other (Per HPI)
Objective Data
Data Reviewed
Vital Signs / I&O:
Vital Signs
Temp Pulse Resp BP Pulse Ox
99.0 F 68 15 160/83 96
02/07/24 09:07 02/07/24 09:07 02/07/24 09:07 02/07/24 09:07 02/07/24 09:07
Intake and Output
02/06/24 02/07/24 02/08/24
06:59 06:59 06:59
Intake Total 1440 / 1440 1260 / 1260
Balance 1440 / 1440 1260 / 1260
SaO2: 96
Physical Exam
General: Respiratory Distress (Negative), Comfortable, Sweats (Negative) and Good Appetite
HEENT: Normocephalic and Anicteric
Cardiovascular: Regular Rhythm, Murmur (Negative) and Peripheral Edema (Negative)
Respiratory: Wheeze (Few forced end expiratory-overall improving), Crackles (Negative), Rhonchi (Bilaterally in lower extremities) and Non-Labored Respirations
GI: Soft, Non Distended, Non Tender and Normal Bowel Sounds
Neurology: Awake, Alert and Tremors (Negative)
Skin: Warm, Dry, Cyanosis (n), Jaundice (n) and Rash
Labs/Micro/Reports
Lab Data
02/06/24 07:58
02/06/24 07:58
Microbiology
01/31/24 16:16 Blood/Venous Blood Culture - Final
No Growth - Final Report
01/31/24 13:55 Blood/Venous Blood Culture - Final
No Growth - Final Report
--- NOTE | 2024-02-07 11:23 | W.PN.CD ---
Today's Communication / Plan
-
Continue metoprolol if tolerated
F/u with Dr. Doe routinely
Cardiology will sign off
Impression / Plan
-
NSVT: a few brief runs on tele
- Last 4 beats at 23:39 hrs on 02/06/2024
- No hx of recent or remote syncope or presyncope
-Asymptomatic
-echo 11/2023: EF 60-65%, mild/moderate MR
-continue the increased metoprolol succinate to 50mg qHS
-If she were to start wheezing, then would transition metoprolol to cardizem
Mild/moderate mitral regurgitation
Persistent bronchitis
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
HTN
HLD, on atorvastatin
Right carotid artery stenosis, < 50%, outpatient surveillance
Sjogren's syndrome
Prior PE, in the setting of COVID-19
Prior colon cancer S/P resection & chemotherapy
Subjective:
No CP or palps. So far tolerating metoprolol
Physical Exam
Vital Signs/Labs
Vital Signs
Temp Pulse Resp BP Pulse Ox
99.0 F 68 15 160/83 96
02/07/24 09:07 02/07/24 09:07 02/07/24 09:07 02/07/24 09:07 02/07/24 09:48
02/06/24 07:58
02/06/24 07:58
Magnesium 1.8 mg/dl (1.6-2.3) 02/06/24 07:58
Physical Exam
EENT: Anicteric
Cardiovascular: Rhythm & rate is regular and S1S2 is normal
Respiratory: Respiratory effort normal and Wheeze Absent
GI: Soft and Distention absent
Neuro/Psych: AO x 3
Data Reviewed
-
Date of Service: February 07, 2024
--- NOTE | 2024-02-07 16:29 | CM ---
patient sating okay on ra,change iv steroids to po,finish doxy this evening,probably dc home in 24 hrs if patient remains stable.
[2024-02-07] MEDS: TOPROL XL 50 MG PO (17:42)
[2024-02-07] MEDS: LIPITOR 10 MG PO (17:42)
[2024-02-07] MEDS: LOVENOX 40 MG SC (17:42)
[2024-02-08 00:16] VITALS: BP 152/69
[2024-02-08 03:55] VITALS: BP 149/67
[2024-02-08] MEDS: SYNTHROID 75 MCG PO (06:02)
[2024-02-08 07:15] VITALS: BP 168/73
[2024-02-08] MEDS: SYMBICORT 160/4.5 MCG INHALER 2 PUFF INH (07:29)
[2024-02-08] MEDS: DUONEB 3 ML INH (07:29)
[2024-02-08] MEDS: MUCINEX 1200 MG PO (08:24)
[2024-02-08] MEDS: COZAAR 50 MG PO (08:24)
[2024-02-08] MEDS: TYLENOL 1000 MG PO (08:24)
--- NOTE | 2024-02-08 08:25 | W.PN.HOSP.TC ---
Today's Communication/Plan
-
dc to home
Assessment / Plan
Assessment / Plan
Assessment:
Persistent bronchitis
cystic lung disease from underlying Sjogren's Syndrome
Acute on chronic (from underlying Sjogren's Syndrome cystic lung disease)
- CXR: Mild subsegmental atelectasis in the lung bases. Known bilateral pulmonary cysts are better appreciated on the prior chest CT. No focal consolidation, pleural effusion, or pneumothorax. The cardiomediastinal silhouette is normal. Chronic
degenerative changes of the spine.
- CT 01/26: Several small bilateral scattered pulmonary airspace/cystic structures are again seen bilaterally likely corresponding with the patient's history of Sjogren's syndrome. There is some bibasilar subsegmental atelectasis and/or scarring.
There is no significant hilar, mediastinal or axillary lymphadenopathy. No pleural or pericardial effusion is seen.
- COVID/Flu neg
- completed doxy course
- dc on PO steroids with prolonged taper as per pulm notes
- continue nebs scheduled and prn
- continue Symbicort
- continue mucolytics, anti-tussives, IS, Acapella. add Prometh+Codeine, Tessalon to list at dc
- OP Pulmonary follow up
NSVT
- continue BB
- OP Cards f/u in 1 month
Leukocytosis
- steroid induced, improving
Chest pressure
- likely related to above process
- EKG sinus rhythm, LVH
- trop 0.023
- continue tele
Lactic acidosis
- improved with IVF, resolved
Sjogren's Syndrome
- continue cevimeline
Essential Hypertension
- continue losartan
- monitor BPs
Dyslipidemia
- continue atorvastatin
Hypothyroidism
- continue levothyroxine
prior hx of Pulmonary Embolism
Left carotid artery stenosis
Hx Colon Cancer s/p Surgery and Chemo
DVT ppx: Lovenox
Code: Full
More than 30 minutes spent in discharge including
Final examination of the patient
Summarizing hospital stay
Instructions for continuing care to all relevant caregivers
Preparation of discharge records, prescriptions, and referral forms
Total time spent (in minutes): 41
Anticipated Discharge: Today
Subjective/Interval History
-
Date of Service: February 08, 2024
wheezing improved, reports lingering cough
Objective Data
-
Vital Signs:
Vital Signs
Temp Pulse Resp BP Pulse Ox
98.2 F 71 16 168/73 99
02/08/24 07:15 02/08/24 07:30 02/08/24 07:30 02/08/24 07:15 02/08/24 07:30
I&O
02/07/24 02/08/24 02/09/24
06:59 06:59 06:59
Intake Total 1260 / 1260 720 / 720
Balance 1260 / 1260 720 / 720
Physical Exam
-
General: No Apparent Distress
HEENT: Normocephalic and Atraumatic
Respiratory: Clear to Auscultation; Negative Wheezes, Rales or Rhonchi
Cardiac: Regular Rhythm and S1/S2
GI: Soft
Genito-urinary: No Costovertebral Tender
Neuro: AO x 3
Psych: Calm
Data Reviewed
-
Total Time Spent with Patient (in minutes): 41
Labs: Labs Reviewed by me
--- NOTE | 2024-02-08 08:35 | W.DS.TRANS ---
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
-
Discharge Instructions:
Discharge Diagnosis/Procedures Acute on chronic bronchitis in setting of cystic
lung disease from Sjogrens. Also with NSVT (
fast heart beats)
Diet Low Cholesterol
Activity As tolerated
Bathing Restrictions None
Instructions:
Stand-Alone Forms:
Changes to Home Medications: No
Discharge Medications:
DC Medications w/original date entered in [employer]
losartan 100 mg tablet (Cozaar) 50 mg PO BID Blood Pressure 06/18/08
atorvastatin 10 mg tablet 10 mg PO QPM High Cholesterol 08/27/23
biotin 1 tab PO QPM Supplement 08/27/23
cevimeline 30 mg capsule 30 mg PO BID xerostomia 08/27/23
cholecalciferol (vitamin D3) 25 mcg (1,000 unit) tablet (Vitamin D3) 25 mcg PO QPM Supplement 08/27/23
levothyroxine 75 mcg tablet 75 mcg PO DAILY AT 0700 Thyroid 11/29/23
acetaminophen 500 mg tablet 1,000 mg PO BID 01/31/24
albuterol sulfate 90 mcg/actuation aerosol inhaler 2 puff inhalation R Q4 PRN sob/wheezing #8.5 grams 02/08/24
budesonide-formoterol HFA 160 mcg-4.5 mcg/actuation aerosol inhaler (Symbicort) 2 puff inhalation R BID #10.2 grams 02/08/24
dextromethorphan-guaifenesin 5 mg-100 mg/5 mL oral liquid (Robitussin Cough-Chest Congestion DM) 10 ml PO HSPRN PRN cough/congestion #200 mL 02/08/24
ipratropium 0.5 mg-albuterol 3 mg (2.5 mg base)/3 mL nebulization soln 3 ml inhalation R Q4HPRN PRN sob #90 mL 02/08/24
metoprolol succinate 50 mg tablet,extended release 24 hr 50 mg PO QPM #30 tabs 02/08/24
prednisone 10 mg tablet 10 mg PO DIRECTED #50 tabs 02/08/24
promethazine 6.25 mg-codeine 10 mg/5 mL syrup 5 ml PO Q6H PRN Cough #473 mL 02/08/24
Home Medication Changes
Pending Results: No
Total time spent discharging patient (in min): 41
[2024-02-08 10:35] VITALS: BP 117/64
--- NOTE | 2024-02-08 10:36 | CM ---
Patient with Dx Persistent bronchitis, NSVT.
Met with patient who was preparing for d/c. The patient says she feels ready for d/c today. IMM completed. Patient declined offer for VN. was at bedside for transport home.
No CM d/c needs identified.
Plan home today.
[2024-02-08] MEDS: DELTASONE 40 MG PO (10:39)
== END 2024-02-08 11:11 | disposition home or self-care (01) | DRG 546 ==
LOC: 4 EAST ACU 19:15
PROVIDERS: Emergency Medicine; Hospitalist; Nurse Practitioner Family; Registered Nurse; ADMITTING PHYSICIAN Internal Medicine; CONSULT PHYSICIAN Internal Medicine Cardiovascular Disease; CONSULT PHYSICIAN Internal Medicine Critical Care Medicine; EMERGENCY PHYSICIAN Emergency Medicine; FAMILY PHYSICIAN Internal Medicine
DX: M35.02 Sjogren syndrome with lung involvement (principal); E87.20 Acidosis, unspecified; J47.0 Bronchiectasis with acute lower respiratory infection; I47.20 Ventricular tachycardia, unspecified; J20.9 Acute bronchitis, unspecified; E03.9 Hypothyroidism, unspecified; E78.00 Pure hypercholesterolemia, unspecified; I10 Essential (primary) hypertension; I34.0 Nonrheumatic mitral (valve) insufficiency; D64.9 Anemia, unspecified; I65.22 Occlusion and stenosis of left carotid artery; J98.4 Other disorders of lung; K21.9 Gastro-esophageal reflux disease without esophagitis; T38.0X5A Adverse effect of glucocorticoids and synthetic analogues, initial encounter; D72.829 Elevated white blood cell count, unspecified; Z79.890 Hormone replacement therapy; Z88.8 Allergy status to other drugs, medicaments and biological substances; Z85.038 Personal history of other malignant neoplasm of large intestine; Z90.49 Acquired absence of other specified parts of digestive tract; Z86.711 Personal history of pulmonary embolism; Z86.16 Personal history of COVID-19; Z82.49 Family history of ischemic heart disease and other diseases of the circulatory system; Z80.0 Family history of malignant neoplasm of digestive organs; Z80.1 Family history of malignant neoplasm of trachea, bronchus and lung; Z11.52 Encounter for screening for COVID-19
CPT/HCPCS: 71046; 80048; 80053; 83605; 83735; 84145; 84484; 85025; 85027; 86803; 87040; 87502; 87811; 93005; 94640; 94760; 96374; 97116; 97162; 97165; 99285

== ENCOUNTER → 2024-02-14 11:04 | Outpatient (REF) | payer MEDICARE, OTHER, SELFPAY ==
[2024-02-14 12:10] LABS: % Basophils 0.1 % (0-2); % Immature Granulocytes 0.8 % (0-0.5); % Lymphocytes 6.5 % (20.5-51.1); % Monocytes 7.1 % (1.7-9.3); % Neutrophils 85.5 % (42.2-75.2); Absolute Immature Granulocytes 0.1 10^3/uL (0-0.05); Absolute Lymphocytes 0.9 10^3/uL (1.2-3.4); Absolute Monocytes 0.9 10^3/uL (0.1-0.6); Absolute Neutrophils 11.4 10^3/uL (1.4-6.5); Hematocrit 32.9 % (37.0-47.0); Hemoglobin 11.2 g/dL (12.0-16.0); Mean Corpuscular Hgb 32.6 pg (27.0-31.0); Mean Corpuscular Volume 95.6 fL (81.0-99.0); Mean Platelet Volume 9.7 fL (7.4-10.4); Nucleated Red Blood Cells % 0 %; Platelet Count 173 10^3/uL (130-400); Red Blood Cell Count 3.44 10^6/uL (4.20-5.40); Red Cell Dist. Width 14.3 % (11.5-14.5); White Blood Cell Count 13.3 10^3/uL (4.8-10.8)
[2024-02-14 12:43] LABS: Iron 109 ug/dl (37-170)
[2024-02-14 12:52] LABS: Percent Saturation 48 % (20-50); Total Iron Binding Capacity 227 ug/dl (265-497)
== END ==
LOC: REG 11:04
PROVIDERS: ATTENDING PHYSICIAN Nurse Practitioner Adult Health
DX: I47.29 Other ventricular tachycardia (principal); E03.9 Hypothyroidism, unspecified; D64.9 Anemia, unspecified
CPT/HCPCS: 36415; 82728; 83540; 83550; 84443; 85025

== ENCOUNTER → 2024-03-11 09:15 | Outpatient (REF) | payer MEDICARE, OTHER, SELFPAY | LOC: RCS 09:15 | PROVIDERS: ATTENDING PHYSICIAN Nurse Practitioner; FAMILY PHYSICIAN Nurse Practitioner Adult Health | DX: I47.29 Other ventricular tachycardia (principal); I10 Essential (primary) hypertension | CPT/HCPCS: 93225; 93226 ==

== ENCOUNTER → 2024-03-19 09:27 | Outpatient (REF) | payer MEDICARE, OTHER, SELFPAY ==
[2024-03-19 10:33] LABS: % Basophils 0.4 % (0-2); % Eosinophils 0.9 % (0-6); % Immature Granulocytes 0.7 % (0-0.5); % Lymphocytes 23.9 % (20.5-51.1); % Monocytes 11.8 % (1.7-9.3); % Neutrophils 62.3 % (42.2-75.2); Absolute Eosinophils 0.1 10^3/uL (0-0.7); Absolute Lymphocytes 1.3 10^3/uL (1.2-3.4); Absolute Monocytes 0.7 10^3/uL (0.1-0.6); Absolute Neutrophils 3.4 10^3/uL (1.4-6.5); Hematocrit 34.6 % (37.0-47.0); Hemoglobin 11.4 g/dL (12.0-16.0); Mean Corp Hgb Conc. 32.9 g/dL (33.0-37.0); Mean Corpuscular Hgb 33.4 pg (27.0-31.0); Mean Corpuscular Volume 101.5 fL (81.0-99.0); Nucleated Red Blood Cells % 0 %; Platelet Count 182 10^3/uL (130-400); Red Blood Cell Count 3.41 10^6/uL (4.20-5.40); Red Cell Dist. Width 14.6 % (11.5-14.5); White Blood Cell Count 5.5 10^3/uL (4.8-10.8)
[2024-03-19 10:51] LABS: ALT (SGPT) 14 U/L (0-35); AST (SGOT) 27 U/L (14-36); Albumin 3.5 g/dl (3.5-5.0); Alkaline Phosphatase 47 U/L (38-126); Blood Urea Nitrogen 17 mg/dl (7-17); Calcium 9.6 mg/dl (8.4-10.2); Carbon Dioxide 27 mmol/L (22-30); Chloride 103 mmol/L (98-107); Glucose 96 mg/dl (70-99); Sodium 139 mmol/L (135-145); Total Bilirubin 0.8 mg/dl (0.2-1.3); Total Protein 5.8 g/dl (6.3-8.2); eGFR > 60.00
[2024-03-19 10:56] LABS: C-Reactive Protein < 5.00 mg/L (0.0-10.00)
[2024-03-19 11:03] LABS: Urine Albumin Trace (Neg - Trace); Urine Bilirubin Negative (Negative); Urine Character Clear (Clear); Urine Color Yellow; Urine Glucose Negative (Negative); Urine Ketone Negative (Negative); Urine Leukocyte Trace (Negative); Urine Nitrite Negative (Negative); Urine Occult Blood 3+ (Negative); Urine Urobilinogen Negative (Neg - 1+); Urine pH 6.5 (5.0-9.0)
[2024-03-19 11:10] LABS: Complement C3 127 mg/dl (88-165)
[2024-03-19 11:13] LABS: Vitamin D, 25-OH*** 51.5 ng/mL (30-80)
[2024-03-19 11:30] LABS: Urine Amorphous Seen; Urine Squamous Cell 0-2 /LPF (Few); Urine White Cell 0-2 /HPF (0-5)
[2024-03-22 01:49] LABS: ds-DNA Ab, IgG Reflex To Titer 1 IU (0-24)
== END ==
LOC: REG 09:27
PROVIDERS: ATTENDING PHYSICIAN Internal Medicine Rheumatology; FAMILY PHYSICIAN Internal Medicine
DX: D89.2 Hypergammaglobulinemia, unspecified (principal); E03.9 Hypothyroidism, unspecified; E55.9 Vitamin D deficiency, unspecified; I26.99 Other pulmonary embolism without acute cor pulmonale; M16.0 Bilateral primary osteoarthritis of hip; M35.00 Sjogren syndrome, unspecified; M48.061 Spinal stenosis, lumbar region without neurogenic claudication; M51.37 Other intervertebral disc degeneration, lumbosacral region; Z11.59 Encounter for screening for other viral diseases; Z13.820 Encounter for screening for osteoporosis; Z68.25 Body mass index [BMI] 25.0-25.9, adult; Z79.899 Other long term (current) drug therapy
CPT/HCPCS: 36415; 80053; 81003; 81015; 82306; 85025; 86140; 86160; 86225; 87086

== ENCOUNTER → 2024-05-04 10:15 | Outpatient (REF) | payer MEDICARE, OTHER, SELFPAY ==
[2024-05-04 10:50] LABS: D-Dimer 1.35 ug/mlFEU (0.00-0.50)
== END ==
LOC: REG 10:15
PROVIDERS: ATTENDING PHYSICIAN Internal Medicine Critical Care Medicine; FAMILY PHYSICIAN Internal Medicine
DX: Z86.711 Personal history of pulmonary embolism (principal)
CPT/HCPCS: 36415; 85379

== ENCOUNTER → 2024-05-06 13:49 | Outpatient (REF) | payer MEDICARE, OTHER, SELFPAY | LOC: RAD 13:49 | PROVIDERS: ATTENDING PHYSICIAN Internal Medicine Critical Care Medicine; FAMILY PHYSICIAN Internal Medicine | DX: R84.9 Unspecified abnormal finding in specimens from respiratory organs and thorax (principal); R06.02 Shortness of breath; R60.1 Generalized edema | CPT/HCPCS: 93970 ==

== ENCOUNTER 2024-05-10 19:10 | Emergency (ER) | payer MEDICARE, OTHER, SELFPAY ==
[2024-05-10 19:15] VITALS: BP 168/98
[2024-05-10 19:27] VITALS: BP 95/18
[2024-05-10 19:29] VITALS: BP 95/18
[2024-05-10 19:30] VITALS: BP 49/35
[2024-05-10 19:32] VITALS: BP 33/23; BP 49/35
[2024-05-10 19:34] LABS: % Basophils 0.6 % (0-2); % Immature Granulocytes 6.8 % (0-0.5); % Lymphocytes 60.5 % (20.5-51.1); % Monocytes 3.5 % (1.7-9.3); % Neutrophils 27.6 % (42.2-75.2); Absolute Basophils 0.1 10^3/uL (0-0.2); Absolute Eosinophils 0.1 10^3/uL (0-0.7); Absolute Immature Granulocytes 0.6 10^3/uL (0-0.05); Absolute Lymphocytes 5.7 10^3/uL (1.2-3.4); Absolute Monocytes 0.3 10^3/uL (0.1-0.6); Absolute Neutrophils 2.6 10^3/uL (1.4-6.5); Hematocrit 34.1 % (37.0-47.0); Hemoglobin 11.4 g/dL (12.0-16.0); Mean Corp Hgb Conc. 33.4 g/dL (33.0-37.0); Mean Corpuscular Hgb 32.2 pg (27.0-31.0); Mean Corpuscular Volume 96.3 fL (81.0-99.0); Nucleated Red Blood Cells % 0.5 %; Red Blood Cell Count 3.54 10^6/uL (4.20-5.40); White Blood Cell Count 9.4 10^3/uL (4.8-10.8)
[2024-05-10 19:35] VITALS: BP 112/27
[2024-05-10 19:38] LABS: B.E. -19.2 mmol/L; O2 Saturation % 98.3 % (94-98); PCO2 55 mmHg (32-35); PO2 105 mmHg (83-108)
[2024-05-10 19:43] LABS: HCO3 12.4 mmol/L (21-28); pH 6.96 (7.35-7.45)
[2024-05-10 19:46] LABS: PT 22.9 Sec (11.4-14.6)
--- NOTE | 2024-05-10 19:49 | ED.GENMED ---
History of Present Illness
General
Chief Complaint: CODE
Source: spouse, family and ambulance crew
Exam Limitations: none
Time Seen by Provider: 05/10/24 19:49
Nursing documentation reviewed up to this point in time: agreed with
History of Present Illness
History of Present Illness:
78-year-old female presents emergency department due to cardiac arrest. She was unresponsive and started CPR, police arrived, continuing CPR, AED gave 2 shocks. EMS arrived she was in V-fib and was shocked and given multiple rounds of
epinephrine. Return of spontaneous circulation achieved. And route, patient became bradycardic and went into asystole again. Automated compressions in progress upon arrival.
Past History
Past History
ED Past Medical History: Cancer (colon, s/p resection 2006, in remission), HTN, Hypercholesterolemia, Hypothyroidism and Other (Sjogren syndrome)
ED Past Surgical History: Bowel resection (for Colon CA), Gynecological and Other (colon resection 2006, tubal ligation)
Social History
Tobacco: Non-smoker
Alcohol: Occasional
Drug: None
Personal:
Living: with family
Review of Systems
Review of Systems
Allergies reviewed?: Yes
All Other Systems: Not applicable
Cardiac: Reports chest pain
Phy Exam
Physical Exam
Physical Exam:
Physical Exam
General: Unresponsive
Neck: supple.
Heart: s1/s2 irregular rhythm, palpable radial pulses
HEENT: Pupils nonreactive, dilated, blood in ET tube
Lungs: Intubated, coarse breath sounds bilaterally
Abdomen: Nondistended
Neuro: Unresponsive
Skin: no rash
Extremities: no edema. no calf tenderness. negative homans. good distal pulses
Course
Orders/Labs/Results
Orders:
Orders
05/10/24 19:13
EKG [Electrocardiogram (*1)] Urgent
Reason for Study: Chest Pain
EKG- Treatment ONCE
05/10/24 19:14
Cardiac Monitoring- Treatment ONCE
O2 Therapy [RESP] Urgent
Titrate/Wean O2 to maintain O2 sat greater than (%): 90
Special Instructions: Maintain sats >/=90%
Pulse Ox/spot Check [RESP] Urgent
Quantity: 1
Special Instructions: ON ROOM AIR
05/10/24 19:15
Lactate Level [Lactic Acid] Urgent
CR Chest Portable - 1 View Urgent
Reason For Exam: s/p intubation
05/10/24 19:21
Fentanyl Citrate/Pf [Sublimaze] 100 mcg .ROUTE .STK-MED ONE
Heparin 10,000 units .ROUTE .STK-MED ONE
Heparin Sodium,Porcine/Ns/Pf [Heparin 2000 Units/1000 ml] 2,000 unit in 1,000 ml .ROUTE .STK-MED
Midazolam HCl [Versed] 2 mg .ROUTE .STK-MED ONE
Nitroglycerin [Tridil] 1,500 mcg .ROUTE .STK-MED ONE
Verapamil Injectable [Isoptin/Verapamil Injection] 5 mg .ROUTE .STK-MED ONE
05/10/24 19:23
EKG [Electrocardiogram (*1)] Urgent
Reason for Study: Chest Pain
EKG- Treatment ONCE
05/10/24 19:24
Complete Blood Count/With Diff Urgent
Comprehensive Metabolic Panel Urgent
Magnesium Urgent
Protime [Prothrombin Time] Urgent
Troponin I Urgent
05/10/24 19:30
Arterial Blood Gas Urgent
%Oxygen/Room Air: 100
Abnormal Lab Results
05/10/24 05/10/24
19: 19:30
RBC 3.54 L 10^6/uL
(4.20-5.40)
Hgb 11.4 L g/dL
(12.0-16.0)
Hct 34.1 L %
(37.0-47.0)
MCH 32.2 H pg
(27.0-31.0)
PT 22.9 H Sec
(11.4-14.6)
pH 6.96 L*
(7.35-7.45)
pCO2 55 H mmHg
(32-35)
HCO3 12.4 L* mmol/L
(21-28)
ABG O2 Sat (Measured) 98.3 H %
(94-98)
05/10/24 19:24
Vital Signs
Initial and Last Documented VS:
Initial Vital Signs
Pulse Resp BP Pulse Ox
86 26 168/98 80
05/10/24 19:15 05/10/24 19:15 05/10/24 19:15 05/10/24 19:15
Last Documented Vital Signs
Pulse Resp BP Pulse Ox
77 75 112/27 56
05/10/24 19:35 05/10/24 19:35 05/10/24 19:35 05/10/24 19:35
MDM/Problems Addressed
Differential Diagnosis Includes:
ventricular fibrillation, respiratory arrest
MDM/Problems Addressed:
78-year-old female with cardiac arrest in field, ROSC, and then patient arrested again in the emergency department. STEMI alert was called based on EMS findings. Upon patient's arrest, family noted she was DNR and requested we stop efforts.
Chronic conditions affecting care: HTN and Cancer (colon cancer)
Acute Exacerbation and/or Progression of Chronic Illness: HTN and Other (sjogen's)
*EKG
Interpreted by ED Provider?: Yes
EKG Intrepretation Date: 05/10/24
EKG Intrepretation Time: 19:18
Interpretation: abnormal
Comparison EKG: changes noted
Heart Rate: 87
Rate: normal
Rhythm: a-fib
Leonore: left axis deviation
Interval: normal interval
QRS Pattern: normal QRS
Ischemia: ST depression
*Process Improvement Manager Interpretation
Rate: normal
Interpretation: abnormal
Heart Rate: 87
Rhythm: junctional
*Critical Care Note
Total Time (30-74mins, 75-104mins- exclusive of procedures): Not Applicable
Data Reviewed
Review of Other/Old Records Reveals: Records
Further Testing Considered But Not Given:
cardiac catheterization
Patient Management
Discussion with other providers: Interlocking Tower Operator (cardiology Dr. Peter)
ED Attending Note
-
Portions of this chart may have been created with voice recognition software.� Occasional wrong word or��sound alike� substitutions may have occurred due to the inherent limitations of voice recognition software.
Discharge Plan
Departure
Patient Disposition:
Date of Disposition: 05/10/24
Time of Disposition: 19:39
Patient with high blood pressure during this ER visit?: Yes
Discharge Problem:
Cardiac arrest
Prescriptions:
No Action
losartan [Cozaar] 100 MG tablet
50 mg PO BID
atorvastatin 10 mg tablet
10 mg PO QPM
cevimeline 30 mg capsule
30 mg PO BID
cholecalciferol (vitamin D3) [Vitamin D3] 25 mcg (1,000 unit) Tablet
25 mcg PO QPM
levothyroxine 75 mcg Tablet
75 mcg PO DAILY AT 0700
ipratropium-albuterol 0.5 mg-3 mg(2.5 mg base)/3 mL Solution For Nebulization
3 ml inhalation R Q4HPRN PRN (Reason: sob) Qty: 90 1RF
metoprolol succinate 50 mg Tablet Extended Release 24 Hr
50 mg PO QPM Qty: 30 1RF
budesonide-formoterol [Symbicort] 160-4.5 mcg/actuation Hfa Aerosol Inhaler
2 puff inhalation R BID Qty: 10.2 1RF
albuterol sulfate 90 mcg/actuation HFA aerosol inhaler
2 puff INHALATION R Q4HPRN PRN (Reason: sob/wheezing)
Referrals:
UNKNOWN - PT NOT,INTERVIEWE [Family Provider] -
Interventions
Interventions:
*Risk Screen - Suicide Last Done: 05/10/24 19:28
*Neglect/Abuse Screening Last Done: 05/10/24 19:28
Discharge Date and Time
Print Language: BARBADIAN
--- NOTE | 2024-05-10 19:50 | EDRN ---
1937- Family @ bedside, requesting resuscitation efforts to be stopped.
193 - Time of pronounced by Dr Mar
[2024-05-10 19:53] LABS: ALT (SGPT) 96 U/L (0-35); AST (SGOT) 157 U/L (14-36); Albumin 2.9 g/dl (3.5-5.0); Alkaline Phosphatase 44 U/L (38-126); Blood Urea Nitrogen 14 mg/dl (7-17); Carbon Dioxide 15 mmol/L (22-30); Chloride 108 mmol/L (98-107); Glucose 217 mg/dl (70-99); Magnesium 2.1 mg/dl (1.6-2.3); Potassium 4.3 mmol/L (3.5-5.1); Sodium 136 mmol/L (135-145); eGFR > 60.00
[2024-05-10 19:58] LABS: Mean Platelet Volume 11.1 fL (7.4-10.4); Platelet Count 107 10^3/uL (130-400)
[2024-05-10 20:08] LABS: Troponin I 0.647 ng/ml
== END 2024-05-10 19:39 | disposition expired ==
LOC: EMR 19:10
PROVIDERS: EMERGENCY PHYSICIAN Emergency Medicine
DX: I46.9 Cardiac arrest, cause unspecified (principal); I10 Essential (primary) hypertension
CPT/HCPCS: 99285; 80053; 82805; 83735; 84484; 85025; 85610; 93005; 94002